=== PATIENT | male | born 1945 | race Caucasian/White ===

== ENCOUNTER 2018-05-18 20:47 | Inpatient (IN) ==
[2018-05-18 21:51] LABS: Baso # (Auto) 0.1 th/mm3 (0.0-0.2); Baso % (Auto) 3.3 % (0.0-2.0); Eos # (Auto) 0.1 th/mm3 (0.0-0.4); Eos % (Auto) 3.4 % (0.0-4.0); Hematocrit 27.8 % (39.0-51.0); Hemoglobin 9.1 gm/dL (13.0-17.0); Lymph # (Auto) 0.7 th/mm3 (1.0-4.8); Lymph % (Auto) 17.8 % (9.0-44.0); Mean Corpuscular HGB Conc 32.8 % (32.0-36.0); Mean Corpuscular Hemoglobin 31.5 pg (27.0-34.0); Mean Corpuscular Volume 96.2 fL (80.0-100.0); Mean Platelet Volume 7.5 fL (7.0-11.0); Mono # (Auto) 0.4 th/mm3 (0.0-0.9); Mono % (Auto) 9.8 % (0.0-8.0); Neut # (Auto) 2.7 th/mm3 (1.8-7.7); Neut % (Auto) 65.7 % (16.0-70.0); Platelet Count 314 th/mm3 (150-450); Red Blood Count 2.89 mil/mm3 (4.50-5.90); Red Cell Distribution Width 17.8 % (11.6-17.2); White Blood Count 4.2 th/mm3 (4.0-11.0)
--- NOTE | 2018-05-18 22:01 | XR ---
EXAM DATE: 05/18/2018 9:58 PM EST AGE/SEX: 73 years / Male INDICATIONS: Shortness of breath. CLINICAL DATA: This is the patient's initial encounter. Patient reports that signs and symptoms have been present for > 1 year and indicates a pain score of Nonresponsive. MEDICAL/SURGICAL HISTORY: Chronic obstructive pulmonary disease. . Atrial fibrillation. COMPARISON: [facility] [place] 1[place] SING[place] AP, [place]/04/2018. . FINDINGS: Slight cardiomegaly seen. Lungs are clear. CONCLUSION: No acute cardiopulmonary disease. Electronically signed by: Teresa Valadez MD Board Certified Radiologist 05/18/2018 10:00 PM EST
[2018-05-18 22:13] LABS: Alanine Aminotransferase 23 U/L (12-78); Albumin 3.3 g/dL (3.4-5.0); Anion Gap 11 meq/L (5-15); Aspartate Aminotransferase 24 U/L (15-37); Blood Urea Nitrogen 13 mg/dL (7-18); Calcium 8.7 mg/dL (8.5-10.1); Carbon Dioxide 24.7 meq/L (21.0-32.0); Chloride 107 meq/L (98-107); Glomerular Filtration Rate 82 mL/min (>89); Glucose,Random 90 mg/dL (74-106); Magnesium 1.6 mg/dL (1.5-2.5); Potassium 3.6 meq/L (3.5-5.1); Sodium 143 meq/L (136-145)
[2018-05-18 22:23] LABS: Alkaline Phosphatase 137 U/L (45-117); Total Protein 7.2 g/dL (6.4-8.2)
[2018-05-18 22:38] LABS: Alcohol 150 mg/dL (0-5)
--- NOTE | 2018-05-18 22:56 | CT ---
EXAM DATE: 05/18/2018 10:48 PM EST AGE/SEX: 73 years / Male INDICATIONS: Trauma. Head injury. CLINICAL DATA: This is the patient's initial encounter. Patient reports that signs and symptoms have been present for 1 day and indicates a pain score of 0/10. MEDICAL/SURGICAL HISTORY: Chronic obstructive pulmonary disease. Carcinoma, prostatic. A-fib. No ne. RADIATION DOSE: 40.15 CTDI (mGy) [place] [facility] [place]. . TECHNIQUE: CT of the head without contrast. Using automated exposure control and adjustment of the mA and/or kV according to patient size, radiation dose was kept as low as reasonably achievable to ob tain optimal diagnostic quality images. DICOM format image data is available electronically for revi ew and comparison. FINDINGS: Cerebrum: The ventricles are normal for age. There is a septum cavum pellucidum. No evidence of midl ine shift, mass lesion, hemorrhage or acute infarction. No extraaxial fluid collections are seen. Posterior Fossa: The cerebellum and brainstem are intact. The 4th ventricle is midline. The cerebe llopontine angle is unremarkable. Extracranial: The visualized portion of the orbits is intact. Skull: The calvaria is intact. No evidence of skull fracture. CONCLUSION: No acute intracranial abnormality. . . Electronically signed by: Zafar Ibarra MD Board Certified Radiologist 05/18/2018 10:55 PM EST
--- NOTE | 2018-05-18 23:01 | CT ---
EXAM DATE: 05/18/2018 10:54 PM EST AGE/SEX: 73 years / Male INDICATIONS: Trauma. CLINICAL DATA: This is the patient's initial encounter. Patient reports that signs and symptoms have been present for 1 day and indicates a pain score of 0/10. MEDICAL/SURGICAL HISTORY: Chronic obstructive pulmonary disease. Carcinoma, prostatic. A-fib. None. RADIATION DOSE: 19.59 CTDI (mGy) COMPARISON: No prior exams available for comparison. TECHNIQUE: Contiguous axial images were obtained using helical multirow detector technique. The vol umetric data was post-processed with multiplanar reconstruction in oblique axial, sagittal, and coron al planes. Using automated exposure control and adjustment of the mA and/or kV according to patient s ize, radiation dose was kept as low as reasonably achievable to obtain optimal diagnostic quality gloria ges. DICOM format image data is available electronically for review and comparison. FINDINGS: Vertebrae: Normal vertebral body height. Alignment: Normal. No subluxation. C2-3: The bony spinal canal is normal in size. No evidence of disc bulge or herniation. There is facet hypertrophy being worse on the left. There is mild narrowing of the left neural foramina. The r ight neural foramina is patent. C3-4: The bony spinal canal is normal in size. No evidence of disc bulge or herniation. There is fa cet hypertrophy being worse than the left. There is narrowing of the left neural foramina. The right neural foramina is patent. C4-5: The bony spinal canal is normal in size. No evidence of disc bulge or herniation. The neural foramina are bilaterally patent. There is facet hypertrophy. C5-6: The bony spinal canal is normal in size. No evidence of disc bulge or herniation. The neural foramina are bilaterally patent. There is facet hypertrophy. C6-7: The bony spinal canal is normal in size. No evidence of disc bulge or herniation. The neural foramina are bilaterally patent. C7-T1: The bony spinal canal is normal in size. No evidence of disc bulge or herniation. The neura l foramina are bilaterally patent. CONCLUSION: 1. No acute bony abnormality is seen. 2. Degenerative change. Electronically signed by: Zafar Ibarra MD Board Certified Radiologist 05/18/2018 11:00 PM EST
[2018-05-18 23:11] LABS: Bacteria,Urine Rare /hpf; Bilirubin,Urine Negative (Negative); Clarity,Urine Clear (Clear); Color,Urine Yellow (Yellw/Straw); Glucose,Urine (UA) Negative (Negative); Leukocyte Esterase,Urine Negative (Negative); Mucus,Urine Few /lpf (Occasional); Nitrite,Urine Negative (Negative); Specific Gravity,Urine 1.014 (1.002-1.035)
[2018-05-18 23:23] LABS: Amphetamine Screen,Urine Neg (Neg); Barbiturate Screen,Urine Neg (Neg); Cannabinoid Screen,Urine Neg (Neg); Cocaine Screen,Urine Neg (Neg)
[2018-05-18 23:37] LABS: Opiate Screen,Urine Neg (Neg)
[2018-05-18 23:56] LABS: INR 1.1 Ratio; Prothrombin Time 10.7 sec (9.8-11.6)
[2018-05-19] MEDS ORDERED: Metoprolol Inj 5 MG/5 ML Vial IV.PUSH ONE (00:18)
[2018-05-19] MEDS ORDERED: Acetaminophen 325 MG Tablet PO ONE (00:36)
--- NOTE | 2018-05-19 01:41 | ED ---
HPI General Chief complaint: Psychiatric Symptoms Stated complaint: BA/Dayan Time Seen by Provider: 05/18/18 21:39 Source: EMS Mode of arrival: EMS Limitations: no limitations History of Present Illness HPI narrative: 73-year-old male who is a chronic alcoholic was is drinking heavily earlier today. He called 911 and when police arrived patient mentioned that he had a handgun and wanted to kill himself. Patient was Green acted. Currently he is denying any such thoughts. He says that he had fallen earlier and had hit his head and his neck and they are hurting. Patient also has history of atrial fibrillation and is on Coumadin. His heart rate was elevated. Patient is otherwise oriented x3. Related Data Previous Rx's Medication Instructions Recorded diltiazem HCl 120 mg PO DAILY 30 Days #30 cap 05/08/18 ipratropium-albuterol 1 amp NEB Q4HR NEB PRN #30 ml 05/08/18 metoprolol tartrate 25 mg PO TID 30 Days #90 tab 05/08/18 nitrofurantoin macrocrystal 100 mg PO BID #14 cap 05/08/18 rivaroxaban [Xarelto] 15 mg PO DAILY #30 tab 05/08/18 Allergies Allergy/AdvReac Type Severity Reaction Status Date / Time No Known Allergies Allergy Verified 05/04/18 08:16 Review of Systems ROS: all other systems reviewed are negative [facility] Medical History Medical History Atrial fibrillation (Acute) COPD (chronic obstructive pulmonary disease) (Acute) Prostate CA (Acute) Surgical History Surgical History S/P TURP (Acute) Social History Social History Substance History: No History of Abuse Second Hand Smoke Exposure: No Smoking Status: Current every day smoker Tobacco Type: Cigarettes How Often Do You Have a Drink Containing Alcohol: 4 or more times a week Recent Travel in [facility] within the Last 8 Weeks: No Recent Out of Country Travel within the Last 8 Weeks: No Immunization History Tetanus Immunization: Unsure Exam Narrative Exam Narrative: GENERAL: Awake, alert, obese, no obvious distress SKIN: Focused skin assessment warm/dry. Multiple ecchymosis HEAD: Atraumatic. Normocephalic. EYES: Pupils equal and round. No scleral icterus. No injection or drainage. ENT: No nasal bleeding or discharge. Mucous membranes pink and moist. NECK: Trachea midline. No JVD. CARDIOVASCULAR: Irregularly irregular rhythm, tachycardia. No murmur appreciated. RESPIRATORY: No accessory muscle use. Clear to auscultation. Breath sounds equal bilaterally. GASTROINTESTINAL: Abdomen soft, non-tender, nondistended. Hepatic and splenic margins not palpable. MUSCULOSKELETAL: No obvious deformities. No clubbing. No cyanosis. No edema. Left olecranon bursitis NEUROLOGICAL: Awake and alert. No obvious cranial nerve deficits. Motor grossly within normal limits. Normal speech. PSYCHIATRIC: Appropriate mood and affect; insight and judgment normal. Course Initial Documented Vital Signs Temperature 98.0 F 05/18/18 21:06 Pulse Rate 140 H 05/18/18 21:06 Blood Pressure 132/77 05/18/18 21:06 Pulse Oximetry 93 L 05/18/18 21:06 Last Documented Vital Signs Temperature 97.6 F 05/23/18 20:00 Pulse Rate 79 05/23/18 20:50 Respiratory Rate 16 05/23/18 20:50 Blood Pressure 114/65 05/23/18 20:00 Pulse Oximetry 94 L 05/23/18 20:50 Critical Care Time Critical Care Time: Yes Total Critical Care Time: 45 Attestation: Aggregate critical care time was 45 minutes. Time to perform other separately billable procedures was not included in the critical care time. My time did not include minutes spent treating any other patients simultaneously or on activities that did not directly contribute to the patient's treatment. The services I provided to this patient were to treat and/or prevent clinically significant deterioration that could result in: A. fib with RVR, Cardizem bolus and drip I provided critical care services requiring my management, as noted below: Chart data review, documentation time, medication orders and management, vital sign assessments/reviewing monitor data, ordering and reviewing lab tests, ordering and interpreting/reviewing x-rays and diagnostic studies, care of the patient and discussion of the patient with the admitting physicians. Medical Decision Making MDM Narrative Medical decision making narrative: 1:38 AM patient was initially given 20 mg dose of Cardizem bolus and p.o. Cardizem. Heart rate continued to be in 120s- 130s. IV Lopressor 5 mg was given which brought the heart rate down to 90s but currently his heart rate is in 130s again. I have started a Cardizem drip. Based on this patient is not medically cleared. His blood test results are back and within acceptable limit. Patient will need to be admitted medically. He is on [facility] protocol. Medical Screen Exam Complete: Yes Emergency Medical Condition: Yes Lab Data Result diagrams: 05/20/18 04:37 05/22/18 13:29 Lab Results 05/18/18 05/18/18 05/18/18 Range/Units 21:10 21:10 21:10 WBC 4.2 (4.0-11.0) th/mm3 RBC 2.89 L (4.50-5.90) mil/mm3 Hgb 9.1 L (13.0-17.0) gm/dL Hct 27.8 L (39.0-51.0) % MCV 96.2 (80.0-100.0) fL MCH 31.5 (27.0-34.0) pg MCHC 32.8 (32.0-36.0) % RDW 17.8 H (11.6-17.2) % Plt Count 314 D (150-450) th/mm3 MPV 7.5 (7.0-11.0) fL Neut % (Auto) 65.7 (16.0-70.0) % Lymph % (Auto) 17.8 (9.0-44.0) % [place] % (Auto) 9.8 H (0.0-8.0) % Eos % (Auto) 3.4 (0.0-4.0) % Baso % (Auto) 3.3 H (0.0-2.0) % Neut # (Auto) 2.7 (1.8-7.7) th/mm3 Lymph # (Auto) 0.7 L (1.0-4.8) th/mm3 [place] # (Auto) 0.4 (0.0-0.9) th/mm3 Eos # (Auto) 0.1 (0.0-0.4) th/mm3 Baso # (Auto) 0.1 (0.0-0.2) th/mm3 WBC Differential . Differential Comment Auto diff final PT (9.8-11.6) sec INR Ratio Puncture Site Patient Temperature O2 Saturation (90-100) % ABG pH (7.380-7.420) ABG pCO2 (38-42) mmHg ABG pO2 (61-120) mmHG ABG HCO3 (22-26) mmol/L ABG O2 Content (12.0-20.0) Vol % ABG Base Excess (-2-2) mmol/L ABG Methemoglobin (0-2) % Josiah Test Hemoglobin (12.0-16.0) G/DL Carboxyhemoglobin (0-4) % O2 Delivery Device Liter Flow L/M Critical Value Sodium 143 (136-145) meq/L Potassium 3.6 (3.5-5.1) meq/L Chloride 107 (98-107) meq/L Carbon Dioxide 24.7 (21.0-32.0) meq/L Anion Gap 11 (5-15) meq/L BUN 13 (7-18) mg/dL Creatinine 0.91 (0.60-1.30) mg/dL Estimated GFR 82 L (>89) mL/min Random Glucose 90 (74-106) mg/dL Calcium 8.7 (8.5-10.1) mg/dL Magnesium 1.6 (1.5-2.5) mg/dL Total Bilirubin 0.3 (0.2-1.0) mg/dL AST 24 (15-37) U/L ALT 23 (12-78) U/L Alkaline Phosphatase 137 H (45-117) U/L Troponin I (0.02-0.05) ng/mL B-Natriuretic Peptide (0-100) pg/mL Total Protein 7.2 (6.4-8.2) g/dL Albumin 3.3 L (3.4-5.0) g/dL TSH 1.180 (0.358-3.740) uIU/mL Urine Color (Yellw/Straw) Urine Clarity (Clear) Urine pH (5.0-8.5) Ur Specific [place] (1.002-1.035) Urine Protein (Neg-Trace) mg/dL Urine Glucose (UA) (Negative) mg/dL Urine Ketones (Negative) mg/dL Urine Occult Blood (Negative) Urine Nitrate (Negative) Urine Bilirubin (Negative) Urine Urobilinogen (Less than 2) mg/dL Ur Leukocyte Esterase (Negative) Urine RBC (0-3) /hpf Urine WBC (0-5) /hpf Urine Bacteria (None) /hpf Urine Mucus (Occasional) /lpf Micro UA Comment Ur Microscopic Review Urine Culture Comments Salicylates 2.2 L (2.8-20.0) mg/dL Urine Opiates Screen (Neg) Acetaminophen Less than 2.0 L (10.0-30.0) mcg/mL Ur Barbiturates Screen (Neg) Ur Amphetamines Screen (Neg) U Benzodiazepines Scrn (Neg) Urine Cocaine Screen (Neg) U Cannabinoids Screen (Neg) Serum Alcohol 150 H (0-5) mg/dL 05/18/18 05/18/18 05/18/18 Range/Units 22:26 22:26 22:34 WBC (4.0-11.0) th/mm3 RBC (4.50-5.90) mil/mm3 Hgb (13.0-17.0) gm/dL Hct (39.0-51.0) % MCV (80.0-100.0) fL MCH (27.0-34.0) pg MCHC (32.0-36.0) % RDW (11.6-17.2) % Plt Count (150-450) th/mm3 MPV (7.0-11.0) fL Neut % (Auto) (16.0-70.0) % Lymph % (Auto) (9.0-44.0) % [place] % (Auto) (0.0-8.0) % Eos % (Auto) (0.0-4.0) % Baso % (Auto) (0.0-2.0) % Neut # (Auto) (1.8-7.7) th/mm3 Lymph # (Auto) (1.0-4.8) th/mm3 [place] # (Auto) (0.0-0.9) th/mm3 Eos # (Auto) (0.0-0.4) th/mm3 Baso # (Auto) (0.0-0.2) th/mm3 WBC Differential Differential Comment PT (9.8-11.6) sec INR Ratio Puncture Site Patient Temperature O2 Saturation (90-100) % ABG pH (7.380-7.420) ABG pCO2 (38-42) mmHg ABG pO2 (61-120) mmHG ABG HCO3 (22-26) mmol/L ABG O2 Content (12.0-20.0) Vol % ABG Base Excess (-2-2) mmol/L ABG Methemoglobin (0-2) % Josiah Test Hemoglobin (12.0-16.0) G/DL Carboxyhemoglobin (0-4) % O2 Delivery Device Liter Flow L/M Critical Value Sodium (136-145) meq/L Potassium (3.5-5.1) meq/L Chloride (98-107) meq/L Carbon Dioxide (21.0-32.0) meq/L Anion Gap (5-15) meq/L BUN (7-18) mg/dL Creatinine (0.60-1.30) mg/dL Estimated GFR (>89) mL/min Random Glucose (74-106) mg/dL Calcium (8.5-10.1) mg/dL Magnesium (1.5-2.5) mg/dL Total Bilirubin (0.2-1.0) mg/dL AST (15-37) U/L ALT (12-78) U/L Alkaline Phosphatase (45-117) U/L Troponin I Less than 0.02 L (0.02-0.05) ng/mL B-Natriuretic Peptide (0-100) pg/mL Total Protein (6.4-8.2) g/dL Albumin (3.4-5.0) g/dL TSH (0.358-3.740) uIU/mL Urine Color Yellow (Yellw/Straw) Urine Clarity Clear (Clear) Urine pH 5.0 (5.0-8.5) Ur Specific [place] 1.014 (1.002-1.035) Urine Protein Negative (Neg-Trace) mg/dL Urine Glucose (UA) Negative (Negative) mg/dL Urine Ketones Negative (Negative) mg/dL Urine Occult Blood Negative (Negative) Urine Nitrate Negative (Negative) Urine Bilirubin Negative (Negative) Urine Urobilinogen Less than 2 (Less than 2) mg/dL Ur Leukocyte Esterase Negative (Negative) Urine RBC 2 (0-3) /hpf Urine WBC 7 H (0-5) /hpf Urine Bacteria Rare H (None) /hpf Urine Mucus Few H (Occasional) /lpf Micro UA Comment Cath-culture ind Ur Microscopic Review Not Reportable Urine Culture Comments Cath-cult indicated Salicylates (2.8-20.0) mg/dL Urine Opiates Screen Neg (Neg) Acetaminophen (10.0-30.0) mcg/mL Ur Barbiturates Screen Neg (Neg) Ur Amphetamines Screen Neg (Neg) U Benzodiazepines Scrn Pos H (Neg) Urine Cocaine Screen Neg (Neg) U Cannabinoids Screen Neg (Neg) Serum Alcohol (0-5) mg/dL 05/18/18 05/18/18 05/20/18 Range/Units 22:34 23:28 04:37 WBC 4.5 (4.0-11.0) th/mm3 RBC 2.93 L (4.50-5.90) mil/mm3 Hgb 9.2 L (13.0-17.0) gm/dL Hct 28.3 L (39.0-51.0) % MCV 96.5 (80.0-100.0) fL MCH 31.4 (27.0-34.0) pg MCHC 32.5 (32.0-36.0) % RDW 17.9 H (11.6-17.2) % Plt Count 238 (150-450) th/mm3 MPV 7.2 (7.0-11.0) fL Neut % (Auto) 74.1 H (16.0-70.0) % Lymph % (Auto) 12.6 (9.0-44.0) % [place] % (Auto) 8.3 H (0.0-8.0) % Eos % (Auto) 4.0 (0.0-4.0) % Baso % (Auto) 1.0 (0.0-2.0) % Neut # (Auto) 3.3 (1.8-7.7) th/mm3 Lymph # (Auto) 0.6 L (1.0-4.8) th/mm3 [place] # (Auto) 0.4 (0.0-0.9) th/mm3 Eos # (Auto) 0.2 (0.0-0.4) th/mm3 Baso # (Auto) 0.0 (0.0-0.2) th/mm3 WBC Differential . Differential Comment Auto diff final PT 10.7 (9.8-11.6) sec INR 1.1 Ratio Puncture Site Patient Temperature O2 Saturation (90-100) % ABG pH (7.380-7.420) ABG pCO2 (38-42) mmHg ABG pO2 (61-120) mmHG ABG HCO3 (22-26) mmol/L ABG O2 Content (12.0-20.0) Vol % ABG Base Excess (-2-2) mmol/L ABG Methemoglobin (0-2) % Josiah Test Hemoglobin (12.0-16.0) G/DL Carboxyhemoglobin (0-4) % O2 Delivery Device Liter Flow L/M Critical Value Sodium (136-145) meq/L Potassium (3.5-5.1) meq/L Chloride (98-107) meq/L Carbon Dioxide (21.0-32.0) meq/L Anion Gap (5-15) meq/L BUN (7-18) mg/dL Creatinine (0.60-1.30) mg/dL Estimated GFR (>89) mL/min Random Glucose (74-106) mg/dL Calcium (8.5-10.1) mg/dL Magnesium (1.5-2.5) mg/dL Total Bilirubin (0.2-1.0) mg/dL AST (15-37) U/L ALT (12-78) U/L Alkaline Phosphatase (45-117) U/L Troponin I (0.02-0.05) ng/mL B-Natriuretic Peptide 128 H (0-100) pg/mL Total Protein (6.4-8.2) g/dL Albumin (3.4-5.0) g/dL TSH (0.358-3.740) uIU/mL Urine Color (Yellw/Straw) Urine Clarity (Clear) Urine pH (5.0-8.5) Ur Specific [place] (1.002-1.035) Urine Protein (Neg-Trace) mg/dL Urine Glucose (UA) (Negative) mg/dL Urine Ketones (Negative) mg/dL Urine Occult Blood (Negative) Urine Nitrate (Negative) Urine Bilirubin (Negative) Urine Urobilinogen (Less than 2) mg/dL Ur Leukocyte Esterase (Negative) Urine RBC (0-3) /hpf Urine WBC (0-5) /hpf Urine Bacteria (None) /hpf Urine Mucus (Occasional) /lpf Micro UA Comment Ur Microscopic Review Urine Culture Comments Salicylates (2.8-20.0) mg/dL Urine Opiates Screen (Neg) Acetaminophen (10.0-30.0) mcg/mL Ur Barbiturates Screen (Neg) Ur Amphetamines Screen (Neg) U Benzodiazepines Scrn (Neg) Urine Cocaine Screen (Neg) U Cannabinoids Screen (Neg) Serum Alcohol (0-5) mg/dL 05/20/18 05/20/18 05/21/18 Range/Units 04:37 04:37 08:35 WBC (4.0-11.0) th/mm3 RBC (4.50-5.90) mil/mm3 Hgb (13.0-17.0) gm/dL Hct (39.0-51.0) % MCV (80.0-100.0) fL MCH (27.0-34.0) pg MCHC (32.0-36.0) % RDW (11.6-17.2) % Plt Count (150-450) th/mm3 MPV (7.0-11.0) fL Neut % (Auto) (16.0-70.0) % Lymph % (Auto) (9.0-44.0) % [place] % (Auto) (0.0-8.0) % Eos % (Auto) (0.0-4.0) % Baso % (Auto) (0.0-2.0) % Neut # (Auto) (1.8-7.7) th/mm3 Lymph # (Auto) (1.0-4.8) th/mm3 [place] # (Auto) (0.0-0.9) th/mm3 Eos # (Auto) (0.0-0.4) th/mm3 Baso # (Auto) (0.0-0.2) th/mm3 WBC Differential Differential Comment PT (9.8-11.6) sec INR Ratio Puncture Site Patient Temperature O2 Saturation (90-100) % ABG pH (7.380-7.420) ABG pCO2 (38-42) mmHg ABG pO2 (61-120) mmHG ABG HCO3 (22-26) mmol/L ABG O2 Content (12.0-20.0) Vol % ABG Base Excess (-2-2) mmol/L ABG Methemoglobin (0-2) % Josiah Test Hemoglobin (12.0-16.0) G/DL Carboxyhemoglobin (0-4) % O2 Delivery Device Liter Flow L/M Critical Value Sodium 141 141 (136-145) meq/L Potassium 3.1 L 3.7 (3.5-5.1) meq/L Chloride 102 101 (98-107) meq/L Carbon Dioxide 32.1 H 36.2 H (21.0-32.0) meq/L Anion Gap 7 4 L (5-15) meq/L BUN 10 8 (7-18) mg/dL Creatinine 0.93 0.85 (0.60-1.30) mg/dL Estimated GFR 80 L 89 (>89) mL/min Random Glucose 118 H 107 H (74-106) mg/dL Calcium 8.3 L 8.5 (8.5-10.1) mg/dL Magnesium 1.3 L (1.5-2.5) mg/dL Total Bilirubin 0.4 (0.2-1.0) mg/dL AST 14 L (15-37) U/L ALT 18 (12-78) U/L Alkaline Phosphatase 121 H (45-117) U/L Troponin I (0.02-0.05) ng/mL B-Natriuretic Peptide (0-100) pg/mL Total Protein 6.9 (6.4-8.2) g/dL Albumin 3.1 L (3.4-5.0) g/dL TSH (0.358-3.740) uIU/mL Urine Color (Yellw/Straw) Urine Clarity (Clear) Urine pH (5.0-8.5) Ur Specific [place] (1.002-1.035) Urine Protein (Neg-Trace) mg/dL Urine Glucose (UA) (Negative) mg/dL Urine Ketones (Negative) mg/dL Urine Occult Blood (Negative) Urine Nitrate (Negative) Urine Bilirubin (Negative) Urine Urobilinogen (Less than 2) mg/dL Ur Leukocyte Esterase (Negative) Urine RBC (0-3) /hpf Urine WBC (0-5) /hpf Urine Bacteria (None) /hpf Urine Mucus (Occasional) /lpf Micro UA Comment Ur Microscopic Review Urine Culture Comments Salicylates (2.8-20.0) mg/dL Urine Opiates Screen (Neg) Acetaminophen (10.0-30.0) mcg/mL Ur Barbiturates Screen (Neg) Ur Amphetamines Screen (Neg) U Benzodiazepines Scrn (Neg) Urine Cocaine Screen (Neg) U Cannabinoids Screen (Neg) Serum Alcohol (0-5) mg/dL 05/22/18 05/22/18 05/22/18 Range/Units 13:29 13:29 15:00 WBC (4.0-11.0) th/mm3 RBC (4.50-5.90) mil/mm3 Hgb (13.0-17.0) gm/dL Hct (39.0-51.0) % MCV (80.0-100.0) fL MCH (27.0-34.0) pg MCHC (32.0-36.0) % RDW (11.6-17.2) % Plt Count (150-450) th/mm3 MPV (7.0-11.0) fL Neut % (Auto) (16.0-70.0) % Lymph % (Auto) (9.0-44.0) % [place] % (Auto) (0.0-8.0) % Eos % (Auto) (0.0-4.0) % Baso % (Auto) (0.0-2.0) % Neut # (Auto) (1.8-7.7) th/mm3 Lymph # (Auto) (1.0-4.8) th/mm3 [place] # (Auto) (0.0-0.9) th/mm3 Eos # (Auto) (0.0-0.4) th/mm3 Baso # (Auto) (0.0-0.2) th/mm3 WBC Differential Differential Comment PT (9.8-11.6) sec INR Ratio Puncture Site Right radial Patient Temperature 98.6 O2 Saturation 94 (90-100) % ABG pH 7.39 (7.380-7.420) ABG pCO2 57 H* (38-42) mmHg ABG pO2 92 (61-120) mmHG ABG HCO3 34 H (22-26) mmol/L ABG O2 Content 12.6 (12.0-20.0) Vol % ABG Base Excess 8.4 H (-2-2) mmol/L ABG Methemoglobin 1.3 (0-2) % Josiah Test Present Hemoglobin 9.4 L (12.0-16.0) G/DL Carboxyhemoglobin 1.6 (0-4) % O2 Delivery Device Nasal cannula Liter Flow 4.00 L/M Critical Value Yes Sodium 140 (136-145) meq/L Potassium 3.8 (3.5-5.1) meq/L Chloride 100 (98-107) meq/L Carbon Dioxide 33.4 H (21.0-32.0) meq/L Anion Gap 7 (5-15) meq/L BUN 11 (7-18) mg/dL Creatinine 0.94 (0.60-1.30) mg/dL Estimated GFR 79 L (>89) mL/min Random Glucose 128 H (74-106) mg/dL Calcium 8.8 (8.5-10.1) mg/dL Magnesium 1.7 (1.5-2.5) mg/dL Total Bilirubin (0.2-1.0) mg/dL AST (15-37) U/L ALT (12-78) U/L Alkaline Phosphatase (45-117) U/L Troponin I (0.02-0.05) ng/mL B-Natriuretic Peptide (0-100) pg/mL Total Protein (6.4-8.2) g/dL Albumin (3.4-5.0) g/dL TSH (0.358-3.740) uIU/mL Urine Color (Yellw/Straw) Urine Clarity (Clear) Urine pH (5.0-8.5) Ur Specific [place] (1.002-1.035) Urine Protein (Neg-Trace) mg/dL Urine Glucose (UA) (Negative) mg/dL Urine Ketones (Negative) mg/dL Urine Occult Blood (Negative) Urine Nitrate (Negative) Urine Bilirubin (Negative) Urine Urobilinogen (Less than 2) mg/dL Ur Leukocyte Esterase (Negative) Urine RBC (0-3) /hpf Urine WBC (0-5) /hpf Urine Bacteria (None) /hpf Urine Mucus (Occasional) /lpf Micro UA Comment Ur Microscopic Review Urine Culture Comments Salicylates (2.8-20.0) mg/dL Urine Opiates Screen (Neg) Acetaminophen (10.0-30.0) mcg/mL Ur Barbiturates Screen (Neg) Ur Amphetamines Screen (Neg) U Benzodiazepines Scrn (Neg) Urine Cocaine Screen (Neg) U Cannabinoids Screen (Neg) Serum Alcohol (0-5) mg/dL Imaging Data Radiologist's impression: Chest X-Ray 05/18/18 21:39 CONCLUSION: No acute cardiopulmonary disease. Cervical Spine CT 05/18/18 22:08 CONCLUSION: 1. No acute bony abnormality is seen. 2. Degenerative change. Head CT 05/18/18 22:08 CONCLUSION: No acute intracranial abnormality. . . Chest X-Ray 05/19/18 20:54 CONCLUSION: Cardiomegaly with minimal basilar atelectasis. Chest X-Ray 05/21/18 00:00 CONCLUSION: The lungs are clear. ECG Data Attestation: I personally reviewed and interpreted this ECG as follows: Interpretation: Twelve-lead EKG was reviewed by meAshish A. fib, normal axis, low voltage, RVR. Heart rate of 129 bpm. Discharge Plan Discharge Disposition Patient Disposition: ED Admit(ED Internal Use Only) Discharge Order Discharge Orders: ED Use Only Admit Order (Routine); Ordered 05/19/18 Ordered By: Juan Murray Physicians Team ED Provider: Juan Murray Primary Care Provider: UNKNOWN, Attending Provider: Dionne Hood Other Providers: Ayden Desir ; Travis Robles ; Americo Vidal ; Stewart Mahan ; Cabrera Her P Status ED Status: Left Department Discharge Information Discharge Date/Time: 05/19/18 03:37
[2018-05-19] MEDS ORDERED: Acetaminophen 325 MG Tablet PO PRN (01:56)
[2018-05-19] MEDS ORDERED: Bisacodyl 10 MG Supp RECTAL PRN (01:56)
[2018-05-19] MEDS ORDERED: Ibuprofen 600 MG Tablet PO ONE (02:00)
[2018-05-19] MEDS: Sod Chloride 0.9% Inj 1,000 ML IV.CONT SCH (02:08)
[2018-05-19] MEDS: dilTIAZem Inj 125 MG in Sodium Chlor 0.9% Inj 100 ML IV.CONT PRN ×2 (02:29→12:09)
--- NOTE | 2018-05-19 02:52 | P.HPIM ---
History of Present Illness Primary Care Physician: UNKNOWN History of Present Illness: This is a 73-year-old male with PMH of HTN, A. fib on Xarelto and Alcohol Abuse was brought to the ER by EMS under Green Act after calling Police and threatening to shoot himself w/ his gun. On arrival, noted to be in A-fib w/ RVR, HR 140's, states he is on Xarelto and compliant, cannot recall names of other medications. S/p Cardizem IV x1 in ER w/ transient improvement, however had episode of recurrent A-fib w/ RVR, currently on Cardizem gtt. BP 123/81, HR 135, O2 sat 95% on RA, Afebrile. CBC at baseline. INR 1.1. Chemistry unremarkable. Troponin negative. UA positive for UTI. UDS +Benzo. CXR w/ no acute findings. CT Head w/ no acute findings, CT C- Spine negative. Diagnosis (1) Atrial fibrillation with RVR: (2) Suicidal ideation: (3) Alcohol abuse: (4) UTI (urinary tract infection): Inpatient Certification Inpatient Certification: I certify that the inpatient services were ordered in accordance with Medicare regulations governing the order. This includes certification that hospital inpatient services are reasonable and necessary and in the case of services not specified as inpatient-only under 42 CFR 419.22(n), that they are appropriately provided as inpatient services in accordance to with the 2-midnight benchmark under 43 CFR 412.3(e) Estimated Total Length of Stay (Days): 2 Plans for Post Hospital Care: Not yet determined Review of Systems PAST FAMILY HISTORY: Reviewed. No h/o DM or CAD Review of Systems: all other systems reviewed are negative [facility] Medical History Medical History Atrial fibrillation (Acute) COPD (chronic obstructive pulmonary disease) (Acute) Prostate CA (Acute) Surgical History Surgical History S/P TURP (Acute) Social History Social History Substance History: No History of Abuse Second Hand Smoke Exposure: Yes Smoking Status: Current every day smoker Tobacco Type: Cigarettes How Often Do You Have a Drink Containing Alcohol: 4 or more times a week Recent Travel in [facility] within the Last 8 Weeks: No Recent Out of Country Travel within the Last 8 Weeks: No Immunization History Tetanus Immunization: Unsure Medications and Allergies Allergies Allergy/AdvReac Type Severity Reaction Status Date / Time No Known Allergies Allergy Verified 05/04/18 08:16 Active Medications: Active Medications Acetaminophen (Tylenol) 650 mg PO Q4H PRN PRN Reason: Temp > 100.4 Al Hydroxide/Mg Hydroxide (Milk Of Magnesia Liq) 30 ml PO Q12H PRN PRN Reason: Mild Constipation Bisacodyl (Dulcolax Supp) 10 mg RECTAL DAILY PRN PRN Reason: SEVERE CONSITIPATION Flumazenil (Romazicon Inj) 0.2 mg IV.PUSH Q1M PRN PRN Reason: OVERSEDATION Folic Acid (Folic Acid) 1 mg PO DAILY [facility] Stop: 05/24/18 08:59 Haloperidol Lactate (Haldol Inj) 1 mg IV.PUSH Q15M PRN PRN Reason: for severe agitation Diltiazem HCl 125 mg/ Sodium (Chloride) 125 mls @ 5 mls/hr IV.CONT TITRATE PRN ; Protocol PRN Reason: Per Protocol Last Admin: 05/19/18 02:29 Dose: 5 mg/hr, 5 mls/hr Sodium Chloride (Ns Inj) 1,000 mls @ 100 mls/hr IV.CONT .Q10H [facility] Last Admin: 05/19/18 02:08 Dose: 100 mls/hr Ceftriaxone Sodium 1,000 mg/ (Sodium Chloride) 100 mls @ 200 mls/hr IV.SIG Q24H [facility] Lactulose (Lactulose Liq) 30 ml PO DAILY PRN PRN Reason: SEVERE CONSITIPATION Lorazepam (Ativan Inj) 1 mg IV.PUSH Q4H PRN PRN Reason: for CIWA 8-10 Lorazepam (Ativan Inj) 2 mg IV.PUSH Q15M PRN PRN Reason: for CIWA > 20 Lorazepam (Ativan Inj) 2 mg IV.PUSH Q1H PRN PRN Reason: for CIWA 15-20 Lorazepam (Ativan) 1 mg PO Q4H PRN PRN Reason: for CIWA 8-10 Lorazepam (Ativan) 2 mg PO Q2H PRN PRN Reason: for CIWA 11-14 Lorazepam (Ativan Inj) 2 mg IV.PUSH Q2H PRN PRN Reason: for 02-14 Metoprolol Tartrate (Lopressor) 25 mg PO TID [facility] Multivitamins/Minerals (Theragran-M) 1 tab PO DAILY [facility] Stop: 05/24/18 08:59 Ondansetron HCl (Zofran Inj) 4 mg IV.PUSH Q6H PRN PRN Reason: NAUSEA OR VOMITING Rivaroxaban (Xarelto) 15 mg PO DAILY [facility] Ropinirole HCl (Requip) 0.25 mg PO HS [facility] Senna/Docusate Sodium (Joseline-Colace) 1 tab PO BID [facility] Sennosides (Senokot) 17.2 mg PO Q12H PRN PRN Reason: Moderate Constipation Sodium Chloride (Ns Flush) 2 ml IV.FLUSH PRN PRN PRN Reason: FLUSH AFTER USING IV ACCESS Sodium Chloride (Ns Flush) 2 ml IV.FLUSH BID [facility] Thiamine HCl (Vitamin B1) 100 mg PO DAILY [facility] Physical Exam Vital signs: Vital Signs 05/18/18 21:06 05/18/18 21:29 05/18/18 23:31 Temperature 98.0 F Pulse Rate 140 H 140 H 135 H Respiratory Rate 22 Blood Pressure 132/77 123/81 Pulse Oximetry 93 L 95 05/19/18 00:31 05/19/18 01:53 05/19/18 02:18 Temperature Pulse Rate 98 H 91 H 98 H Respiratory Rate 20 18 20 Blood Pressure 141/72 H 123/81 129/90 Pulse Oximetry 96 95 95 Intake & Output 05/18/18 05/18/18 05/19/18 06:59 18:59 06:59 Intake Total 480 / 480 Balance 480 / 480 Weight 96.162 kg Intake: Oral 480 / 480 Narrative: PE: GENERAL: Middle-aged white male in no acute distress, mildly tremulous. SKIN: Focused skin assessment warm and dry. HEENT: PERRLA, EOMI. No scleral icterus or conjunctival pallor. No lid lag or facial droop. CARDIOVASCULAR: Irregularly irregular, in A-fib, HR 110's. No obvious murmurs to auscultation. No chest tenderness to palpation. RESPIRATORY: No obvious rhonchi or wheezing. Clear to auscultation. Breath sounds equal bilaterally. GASTROINTESTINAL: Abdomen soft, non-tender, nondistended. BS normal. MUSCULOSKELETAL: Extremities without clubbing, cyanosis, or edema. No obvious deformities. Involuntary jerking LLE due to RLS NEUROLOGICAL: Awake, alert and oriented x4. No focal neurologic deficits. Moving both upper and lower extremities spontaneously. PSYCHIATRIC: Appropriate mood and affect. Insight and judgment normal. Urinary Catheter Management Indwelling Urethral Catheter: Cath placed during this visit: yes Reason for continuing: Acute urinary retention Insertion date: 05/18/18 Insertion time: 22:35 Results Labs CBC & Chem 7: 05/18/18 21:10 05/18/18 21:10 Imaging Impressions Chest X-Ray 05/18/18 21:39 CONCLUSION: No acute cardiopulmonary disease. Cervical Spine CT 05/18/18 22:08 CONCLUSION: 1. No acute bony abnormality is seen. 2. Degenerative change. Head CT 05/18/18 22:08 CONCLUSION: No acute intracranial abnormality. . . Caprini VTE Risk Assessment Caprini VTE Risk Assessment: No/Low Risk (score <= 1) Caprini Risk Assessment Model: Point Value = 1 Point Value = 2 Point Value = 3 Point Value = 5 Age 41-60 Minor surgery BMI > 25 kg/m2 Swollen legs Varicose veins or History of unexplained or recurrent spontaneous Oral contraceptives or hormone replacement Sepsis (< 1 month) Serious lung disease, including pneumonia (< 1 month) Abnormal pulmonary function Acute myocardial infarction Congestive heart failure (< 1 month) History of inflammatory bowel disease Medical patient at bed rest Age 61-74 Arthroscopic surgery Major open surgery (> 45 min) Laparoscopic surgery (> 45 min) Malignancy Confined to bed (> 72 hours) Immobilizing plaster cast Central venous access Age >= 75 History of VTE Family history of VTE Factor V Leiden Prothrombin [id number] Lupus anticoagulant Anticardiolipin antibodies Elevated serum homocysteine Heparin-induced thrombocytopenia Other congenital or acquired thrombophilia Stroke (< 1 month) Elective arthroplasty Hip, pelvis, or leg fracture Acute spinal cord injury (< 1 month) Prophylaxis Regimen: Total Risk Factor Score Risk Level Prophylaxis Regimen 0-1 Low Early ambulation 2 Moderate Order ONE of the following: *Sequential Compression Device (SCD) *Heparin 5000 units SQ BID 3-4 Higher Order ONE of the following medications: *Heparin 5000 units SQ TID *Enoxaparin/Lovenox 40 mg SQ daily (WT < 150 kg, CrCl > 30 mL/min) *Enoxaparin/Lovenox 30 mg SQ daily (WT < 150 kg, CrCl > 10-29 mL/min) *Enoxaparin/Lovenox 30 mg SQ BID (WT < 150 kg, CrCl > 30 mL/min) AND/OR *Sequential Compression Device (SCD) 5 or more Highest Order ONE of the following medications: *Heparin 5000 units SQ TID (Preferred with Epidurals) *Enoxaparin/Lovenox 40 mg SQ daily (WT < 150 kg, CrCl > 30 mL/min) *Enoxaparin/Lovenox 30 mg SQ daily (WT < 150 kg, CrCl > 10-29 mL/min) *Enoxaparin/Lovenox 30 mg SQ BID (WT < 150 kg, CrCl > 30 mL/min) AND *Sequential Compression Device (SCD) Assessment and Plan (1) Atrial fibrillation with RVR: Code(s): I48.91 - Unspecified atrial fibrillation Status: Acute (2) Suicidal ideation: Code(s): R45.851 - Suicidal ideations Status: Acute (3) Alcohol abuse: Code(s): F10.10 - Alcohol abuse, uncomplicated Status: Acute (4) UTI (urinary tract infection): Code(s): N39.0 - Urinary tract infection, site not specified Status: Acute Plan A/P: 1. Afib w/ RVR: h/o A-fib, on Cardizem, Metoprolol and Xarelto per med list, however pt only recalls taking Xarelto, RVR likely secondary to med non- compliance compounded by alcohol abuse. Currently on Cardizem gtt, admit to [facility] , telemetry, continue Cardizem gtt, Consult Cardiology as needed. 2. Alcohol Abuse: Chronic, heavy, CIWA, Seizure Precautions, MVT/Thiamine/ Folate replacement. 3. Suicidal Ideation: called Police threatening to kill himself w/ his gun, currently under Green Act, denies suicidal ideation at this time. Sitter. Consult Psych. 4. UTI: U/a w/ UTI, Rocephin IV, IVF for hydration, monitor I/O. 5. DVT Prophylaxis: Xarelto 6. Social work for d/c planning as needed. 7. Case discussed w/ ER physician at length, labs/records/imaging reviewed by me
[2018-05-19] MEDS: Rivaroxaban 15 MG Tablet PO SCH (08:42)
[2018-05-19] MEDS: Metoprolol Tartrate 25 MG Tablet PO SCH ×3 (08:43→18:19)
[2018-05-19] MEDS: Senna/Docusate Sodium 8.6/50 MG Tablet PO SCH ×2 (08:43→19:59)
[2018-05-19] MEDS: Multivitamin/Minerals Therapeutic Tablet PO SCH (08:43)
[2018-05-19] MEDS: Folic Acid 1 MG Tablet PO SCH (08:43)
[2018-05-19] MEDS ORDERED: Digoxin Inj 500 MCG/2 ML Ampul IV.PUSH ONE (09:30)
--- NOTE | 2018-05-19 09:37 | ECG ---
Date Performed: 05/18/2018 Time Performed: 21:27:43 PTAGE: 73 years EKG: ATRIAL FIBRILLATION WITH RAPID VENTRICULAR RESPONSE POSSIBLE RIGHT VENTRICULAR CONDUCTION D ELAY ABNORMAL RHYTHM ECG No significant change from prior electrocardiogram. PREVIOUS TRACING : 05/04/2018 08.34 DOCTOR: Lorenzo Griffith Interpretating Date/Time 05/19/2018 09:36:24
[2018-05-19] MEDS: LORazepam 1 MG Tablet PO PRN ×2 (14:53→19:57)
--- NOTE | 2018-05-19 16:00 | P.CONPSY ---
Provisional Diagnosis Admission Date: May 19, 2018 01:56 History of Present Illness Service: psychiatry Consult date: 05/19/18 Reason for Consult: SI Primary Care Provider: UNKNOWN Chief Complaint: SI History of Present Illness: This is a request for a psychiatric consult. Documentation was reviewed, case was discussed with nursing and patient was evaluated. Patient is a 73-year-old male with a history of mood disorder and severe alcohol use. Patient was discharged from the psychiatric unit 10 days ago on May 09. Patient was admitted to the medical unit and was also found to have a Green act from a police manager to whom he expressed "I am not worth $0.17." Per Green act, patient said he was hopeless and did not feel like living anymore. He was noted to have access to guns at home. However, patient says the guns are not in his house and were taken by the police. Patient is pleasant but is evasive, guarded, denies having suicidal ideation before this admission or last week. He minimizes his alcohol use giving varying amounts during the interview. His CIWA is four today. Past psych: Patient denies outpatient history. Initially denied inpatient history before brought up his admission last week. Denies any history of psychotropic medications. Denies history of suicide attempts Past medical: See chart Past Famhx: Denies Past Social: Patient is retired. He has 2 daughters and lives by himself. Says he started drinking in his 40s but then denies a history of any detoxes or AA. Denies any other substance use Review of Systems All other systems reviewed negative except as stated in HPI PMFSH - History History Provided By: Patient - Medical History Medical History: Medical History (Last Reviewed 05/19/18 @ 01:37 by Juan Murray MD) Atrial fibrillation COPD (chronic obstructive pulmonary disease) Prostate CA - Surgical History Surgical History: Surgical History (Last Reviewed 05/19/18 @ 01:37 by Juan Murray MD) S/P TURP - Tobacco History Second Hand Smoke Exposure: No Tobacco Use In Past 30 Days: Yes Smoking Status: Current every day smoker Tobacco Type: Cigarettes - Alcohol History How Often Do You Have a Drink Containing Alcohol: 4 or more times a week - Substance Use History Substance History: No History of Abuse - Substance Use Type Alcohol Status: Active Route Used: By Mouth Reason for Use: Calm Down, Feels Good - Travel History Recent Travel in the [place] Within the Last 8 Weeks: No Recent Travel Out of the Country Within the Last 8 Weeks: No - Immunization History Tetanus Immunization: Unsure Medications and Allergies Active Medications: Active Medications Acetaminophen (Tylenol) 650 mg PO Q4H PRN PRN Reason: Temp > 100.4 Al Hydroxide/Mg Hydroxide (Milk Of Magnesia Liq) 30 ml PO Q12H PRN PRN Reason: Mild Constipation Bisacodyl (Dulcolax Supp) 10 mg RECTAL DAILY PRN PRN Reason: SEVERE CONSITIPATION Flumazenil (Romazicon Inj) 0.2 mg IV.PUSH Q1M PRN PRN Reason: OVERSEDATION Folic Acid (Folic Acid) 1 mg PO DAILY [facility] Stop: 05/24/18 08:59 Last Admin: 05/19/18 08:43 Dose: 1 mg Haloperidol Lactate (Haldol Inj) 1 mg IV.PUSH Q15M PRN PRN Reason: for severe agitation Diltiazem HCl 125 mg/ Sodium (Chloride) 125 mls @ 5 mls/hr IV.CONT TITRATE PRN ; Protocol PRN Reason: Per Protocol Last Admin: 05/19/18 12:09 Dose: 10 mg/hr, 10 mls/hr Sodium Chloride (Ns Inj) 1,000 mls @ 100 mls/hr IV.CONT .Q10H [facility] Last Admin: 05/19/18 02:08 Dose: 100 mls/hr Ceftriaxone Sodium 1,000 mg/ (Sodium Chloride) 100 mls @ 200 mls/hr IV.SIG Q24H [facility] Ipratropium [place] (Atrovent Neb) 0.5 mg NEB Q4HR NEB PRN PRN Reason: sob Last Admin: 05/19/18 14:50 Dose: 0.5 mg Lactulose (Lactulose Liq) 30 ml PO DAILY PRN PRN Reason: SEVERE CONSITIPATION Lorazepam (Ativan Inj) 1 mg IV.PUSH Q4H PRN PRN Reason: for CIWA 8-10 Lorazepam (Ativan Inj) 2 mg IV.PUSH Q15M PRN PRN Reason: for CIWA > 20 Lorazepam (Ativan Inj) 2 mg IV.PUSH Q1H PRN PRN Reason: for CIWA 15-20 Last Admin: 05/19/18 06:51 Dose: 2 mg Lorazepam (Ativan) 1 mg PO Q4H PRN PRN Reason: for CIWA 8-10 Last Admin: 05/19/18 14:53 Dose: 1 mg Lorazepam (Ativan) 2 mg PO Q2H PRN PRN Reason: for CIWA 11-14 Last Admin: 05/19/18 03:45 Dose: 2 mg Lorazepam (Ativan Inj) 2 mg IV.PUSH Q2H PRN PRN Reason: for CIWA 11-14 Metoprolol Tartrate (Lopressor) 25 mg PO TID [facility] Last Admin: 05/19/18 12:12 Dose: 25 mg Multivitamins/Minerals (Theragran-M) 1 tab PO DAILY [facility] Stop: 05/24/18 08:59 Last Admin: 05/19/18 08:43 Dose: 1 tab Ondansetron HCl (Zofran Inj) 4 mg IV.PUSH Q6H PRN PRN Reason: NAUSEA OR VOMITING Rivaroxaban (Xarelto) 15 mg PO DAILY [facility] Last Admin: 05/19/18 08:42 Dose: 15 mg Ropinirole HCl (Requip) 0.25 mg PO HS [facility] Senna/Docusate Sodium (Joseline-Colace) 1 tab PO BID [facility] Last Admin: 05/19/18 08:43 Dose: 1 tab Sennosides (Senokot) 17.2 mg PO Q12H PRN PRN Reason: Moderate Constipation Sodium Chloride (Ns Flush) 2 ml IV.FLUSH PRN PRN PRN Reason: FLUSH AFTER USING IV ACCESS Sodium Chloride (Ns Flush) 2 ml IV.FLUSH BID [facility] Last Admin: 05/19/18 08:41 Dose: 2 ml Thiamine HCl (Vitamin B1) 100 mg PO DAILY [facility] Last Admin: 05/19/18 12:15 Dose: 100 mg Allergies Allergy/AdvReac Type Severity Reaction Status Date / Time No Known Allergies Allergy Verified 05/04/18 08:16 Exam Vital signs: Vital Signs 05/18/18 21:06 05/18/18 21:29 05/18/18 23:31 Temperature 98.0 F Pulse Rate 140 H 140 H 135 H Respiratory Rate 22 Blood Pressure 132/77 123/81 Pulse Oximetry 93 L 95 05/19/18 00:31 05/19/18 01:53 05/19/18 02:18 Temperature Pulse Rate 98 H 91 H 98 H Respiratory Rate 20 18 20 Blood Pressure 141/72 H 123/81 129/90 Pulse Oximetry 96 95 95 05/19/18 03:00 05/19/18 04:00 05/19/18 05:00 Temperature 97.5 F L Pulse Rate 104 H 98 H 110 H Respiratory Rate 22 22 Blood Pressure 158/78 H 134/78 Pulse Oximetry 95 96 05/19/18 06:00 05/19/18 06:32 05/19/18 07:00 Temperature Pulse Rate 106 H 102 H 118 H Respiratory Rate 18 Blood Pressure Pulse Oximetry 94 L 90 L 05/19/18 08:00 05/19/18 08:54 05/19/18 09:00 Temperature 97.1 F L Pulse Rate 121 H 122 H Respiratory Rate 16 Blood Pressure 124/92 H Pulse Oximetry 90 L 92 L 05/19/18 10:00 05/19/18 11:00 05/19/18 12:00 Temperature 98.5 F Pulse Rate 92 H 94 H 106 H Respiratory Rate 16 Blood Pressure 145/82 H Pulse Oximetry 97 05/19/18 13:00 05/19/18 14:50 Temperature Pulse Rate 95 H 84 Respiratory Rate 20 Blood Pressure Pulse Oximetry Intake & Output 05/18/18 05/19/18 05/19/18 18:59 06:59 18:59 Intake Total 720 / 720 107 / 107 Output Total 1000 / 1000 Balance -280 / -280 107 / 107 Weight 97.6 kg Intake: IV 107 / 107 Cardizem Inj 125 MG In NS Inj 107 / 107 100 ML @ 5 MG/HR 5 mls/hr IV. CONT TITRATE PRN Rx#:[id number] Oral 720 / 720 Output: Urine Amount (Catheter) 1000 / 1000 Indwelling Urethral Catheter 1000 / 1000 Other: Date of Last Bowel Movement 05/19/18 Mental Status Examination Appearance: Disheveled Consciousness: Alert Orientation: x4 Motor Activity: Normal gait Speech: Slow Language: Adequate Fund of Knowledge: Adequate Attention and Concentration: Adequate Memory: Unremarkable Mood: Sad Affect: Blunt Thought Process & Associations: Intact Thought Content: Appropriate Hallucination Type: None Delusion Type: None Suicidal Ideation: Yes (denies but poor historian) Suicidal Plan: No Suicidal Intention: No Homicidal Ideation: No Homicidal Plan: No Homicidal Intention: No Insight: Poor Judgment: Poor Assessment and Plan - Assessment (1) Major depressive disorder, recurrent, moderate Code(s): F33.1 - Major depressive disorder, recurrent, moderate Status: Acute - Plan Plan: Transferred to the psychiatric unit once medically cleared Justification for Continued Inpatient Stay: Patient would decompensate in a less restrictive setting
--- NOTE | 2018-05-19 17:41 | P.PNIM ---
Patient seen. Nursing reports that he had some wheezing earlier this morning, was started on duo nebs. I saw the patient, he was being transferred with assistance from the chair to the bedside. Was awake but seemed to be disoriented. Unlabored breathing. At that time his lung exam was unremarkable with coarse breath sounds bilaterally. His demeanor was calm. Heart sounds were regular rate and rhythm.
--- NOTE | 2018-05-19 21:23 | XR ---
EXAM DATE: 05/19/2018 9:12 PM EST AGE/SEX: 73 years / Male INDICATIONS: Congestive heart failure. CLINICAL DATA: This is the patient's subsequent encounter. Patient reports that signs and symptoms h ave been present for 2 days and indicates a pain score of 0/10. MEDICAL/SURGICAL HISTORY: . Chronic obstructive pulmonary disease. Atrial fibrillation. None. COMPARISON: [facility] [place], CHEST 1V SINGLE AP, 05/18/2018. . FINDINGS: Cardiomegaly. Minimal basilar atelectasis. No effusion or pneumothorax. Mild scoliosis and tortuous a jaxon. CONCLUSION: Cardiomegaly with minimal basilar atelectasis. Electronically signed by: Nathan Freed MD Board Certified Radiologist 05/19/2018 9:22 PM EST
[2018-05-20] MEDS: LORazepam 1 MG Tablet PO PRN ×6 (00:27→22:36)
[2018-05-20 04:59] LABS: Eos # (Auto) 0.2 th/mm3 (0.0-0.4); Hematocrit 28.3 % (39.0-51.0); Hemoglobin 9.2 gm/dL (13.0-17.0); Lymph # (Auto) 0.6 th/mm3 (1.0-4.8); Lymph % (Auto) 12.6 % (9.0-44.0); Mean Corpuscular HGB Conc 32.5 % (32.0-36.0); Mean Corpuscular Hemoglobin 31.4 pg (27.0-34.0); Mean Corpuscular Volume 96.5 fL (80.0-100.0); Mean Platelet Volume 7.2 fL (7.0-11.0); Mono # (Auto) 0.4 th/mm3 (0.0-0.9); Mono % (Auto) 8.3 % (0.0-8.0); Neut # (Auto) 3.3 th/mm3 (1.8-7.7); Neut % (Auto) 74.1 % (16.0-70.0); Platelet Count 238 th/mm3 (150-450); Red Blood Count 2.93 mil/mm3 (4.50-5.90); Red Cell Distribution Width 17.9 % (11.6-17.2); White Blood Count 4.5 th/mm3 (4.0-11.0)
[2018-05-20] MEDS: dilTIAZem Inj 125 MG in Sodium Chlor 0.9% Inj 100 ML IV.CONT PRN ×2 (05:16→19:47)
[2018-05-20 05:26] LABS: Alanine Aminotransferase 18 U/L (12-78); Albumin 3.1 g/dL (3.4-5.0); Anion Gap 7 meq/L (5-15); Aspartate Aminotransferase 14 U/L (15-37); Blood Urea Nitrogen 10 mg/dL (7-18); Calcium 8.3 mg/dL (8.5-10.1); Carbon Dioxide 32.1 meq/L (21.0-32.0); Chloride 102 meq/L (98-107); Glomerular Filtration Rate 80 mL/min (>89); Glucose,Random 118 mg/dL (74-106); Potassium 3.1 meq/L (3.5-5.1); Sodium 141 meq/L (136-145)
[2018-05-20 05:28] LABS: Alkaline Phosphatase 121 U/L (45-117); Total Protein 6.9 g/dL (6.4-8.2)
[2018-05-20] MEDS: Multivitamin/Minerals Therapeutic Tablet PO SCH (09:31)
[2018-05-20] MEDS: Folic Acid 1 MG Tablet PO SCH (09:32)
[2018-05-20] MEDS: Senna/Docusate Sodium 8.6/50 MG Tablet PO SCH ×2 (09:32→20:21)
[2018-05-20] MEDS: Rivaroxaban 15 MG Tablet PO SCH (09:32)
[2018-05-20] MEDS: Metoprolol Tartrate 25 MG Tablet PO SCH ×3 (09:32→17:27)
--- NOTE | 2018-05-20 11:05 | P.PNIM ---
Subjective Interval history: Nursing reports that he was had some "fluid overload" last night, given a dose of Lasix with clearance of his lungs. Patient is lying in bed, says he is trying to get up. Physical Exam Vital signs: Vital Signs 05/19/18 12:00 05/19/18 13:00 05/19/18 14:00 Temperature 98.5 F Pulse Rate 106 H 95 H 87 Respiratory Rate 16 Blood Pressure 145/82 H Pulse Oximetry 97 05/19/18 14:50 05/19/18 15:00 05/19/18 16:00 Temperature 97.8 F Pulse Rate 84 76 76 Respiratory Rate 20 16 Blood Pressure 134/89 Pulse Oximetry 100 05/19/18 16:07 05/19/18 17:00 05/19/18 18:00 Temperature Pulse Rate 113 H 82 Respiratory Rate Blood Pressure Pulse Oximetry 97 05/19/18 19:00 05/19/18 20:00 05/19/18 20:40 Temperature 97.7 F Pulse Rate 110 H 108 H 103 H Respiratory Rate 16 24 Blood Pressure 136/77 Pulse Oximetry 94 L 97 05/19/18 21:00 05/19/18 22:00 05/19/18 22:54 Temperature Pulse Rate 103 H 119 H 103 H Respiratory Rate Blood Pressure Pulse Oximetry 98 05/19/18 23:24 05/20/18 00:00 05/20/18 00:31 Temperature 98 F Pulse Rate 97 H 92 H 102 H Respiratory Rate 16 18 Blood Pressure 145/89 H Pulse Oximetry 95 97 05/20/18 00:59 05/20/18 02:00 05/20/18 03:00 Temperature Pulse Rate 96 H 68 110 H Respiratory Rate Blood Pressure Pulse Oximetry 05/20/18 03:32 05/20/18 03:53 05/20/18 05:00 Temperature 98 F Pulse Rate 96 H 129 H 112 H Respiratory Rate 16 Blood Pressure 116/76 Pulse Oximetry 96 05/20/18 05:45 05/20/18 07:00 05/20/18 08:00 Temperature 98.0 F Pulse Rate 100 H 85 104 H Respiratory Rate 18 Blood Pressure 137/76 Pulse Oximetry 100 05/20/18 09:34 Temperature Pulse Rate 109 H Respiratory Rate 18 Blood Pressure Pulse Oximetry 98 Intake & Output 05/19/18 05/20/18 05/20/18 18:59 06:59 18:59 Intake Total 907 / 907 705 / 705 Output Total 550 / 550 5350 / 5350 Balance 357 / 357 -4645 / -4645 Weight 95.8 kg Intake: IV 107 / 107 225 / 225 Cardizem Inj 125 MG In NS Inj 107 / 107 125 / 125 100 ML @ 5 MG/HR 5 mls/hr IV. CONT TITRATE PRN Rx#:[id number] Rocephin Inj 1,000 MG In NS Inj 100 / 100 100 ML @ 200 mls/hr IV.SIG Q24H [facility] Rx#:[id number] Oral 800 / 800 480 / 480 Output: Urine Amount (Catheter) 550 / 550 5350 / 5350 Indwelling Urethral Catheter 550 / 550 5350 / 5350 Other: Date of Last Bowel Movement 05/19/18 05/19/18 05/19/18 # Bowel Movements 1 Narrative: Clear lungs bilaterally Heart sounds tachycardic and irregular Lying in bed, trying to get out of bed but seems incredibly exhausted No lower extremity edema Awake and alert, oriented x3 Urinary Catheter Management Indwelling Urethral Catheter: Cath placed during this visit: yes Reason for continuing: Hourly intake/output Insertion date: 05/18/18 Insertion time: 22:35 Results Labs CBC & Chem 7: 05/20/18 04:37 05/20/18 04:37 Labs: Microbiology 05/18/18 22:26 Clean Catch Urine Urine Culture - Preliminary Group D Enterococcus Imaging Imaging: Impressions Chest X-Ray 05/19/18 20:54 CONCLUSION: Cardiomegaly with minimal basilar atelectasis. Assessment and Plan (1) Major depressive disorder, recurrent, moderate: Code(s): F33.1 - Major depressive disorder, recurrent, moderate Status: Acute Plan 73-year-old white male admitted under Green act suicidal ideation, as well as A. fib with RVR. 1. Afib w/ RVR: -Still requiring Cardizem drip likely secondary to alcohol withdrawalcontinue as such, Lopressor, Cardizem . Obtaining echocardiogram for further evaluation 2. Alcohol Abuse: Chronic, heavy, CIWA, Seizure Precautions, MVT/Thiamine/ Folate replacement. adding on librium 3. Suicidal Ideation: to be discharged to psychiatry once medically clear 4. UTI: enterococcus, continue rocephin 5. DVT Prophylaxis: Xarelto Progress Note: Quality VTE Deep Vein Thrombosis/Pulmonary Embolism Present on Admission: No
[2018-05-20] MEDS ORDERED: Potassium Chloride Inj 20 MEQ, Magnesium Sulfate Inj 2 GM in Dextrose 5%/NaCl 0.45% Inj... IV.SIG ONE (12:00)
[2018-05-20] MEDS ORDERED: Haloperidol Inj 5 MG/ML Ampul IM ONE (15:17)
[2018-05-20] MEDS ORDERED: Metoprolol Inj 5 MG/5 ML Vial IV.PUSH ONE (15:18)
[2018-05-20] MEDS: Haloperidol Inj 5 MG/ML Ampul IV.PUSH PRN ×2 (19:02→21:02)
[2018-05-21] MEDS: Metoprolol Tartrate 25 MG Tablet PO SCH ×3 (08:59→17:59)
[2018-05-21] MEDS: Multivitamin/Minerals Therapeutic Tablet PO SCH (08:59)
[2018-05-21] MEDS: Folic Acid 1 MG Tablet PO SCH (09:00)
[2018-05-21] MEDS: Rivaroxaban 15 MG Tablet PO SCH (09:00)
[2018-05-21] MEDS: Senna/Docusate Sodium 8.6/50 MG Tablet PO SCH ×2 (09:00→20:41)
[2018-05-21 09:05] LABS: Calcium 8.5 mg/dL (8.5-10.1); Carbon Dioxide 36.2 meq/L (21.0-32.0); Potassium 3.7 meq/L (3.5-5.1)
[2018-05-21] MEDS ORDERED: dilTIAZem 30 MG Tablet PO ONE (09:05)
--- NOTE | 2018-05-21 12:30 | P.PNIM ---
Subjective Interval history: Patient reports the patient is on the lowest dose of Cardizem drip. He had to almost sternal rub him this morning to get him to wake up to take his medications. Patient himself has no complaints Awake,. Physical Exam Vital signs: Vital Signs 05/20/18 13:00 05/20/18 13:06 05/20/18 14:00 Temperature Pulse Rate 80 90 106 H Respiratory Rate 20 Blood Pressure Pulse Oximetry 05/20/18 15:00 05/20/18 16:00 05/20/18 17:00 Temperature 98.0 F Pulse Rate 88 85 90 Respiratory Rate 18 Blood Pressure 122/69 Pulse Oximetry 93 L 05/20/18 18:00 05/20/18 19:00 05/20/18 20:00 Temperature 97.8 F Pulse Rate 78 84 76 Respiratory Rate 18 Blood Pressure 147/75 H Pulse Oximetry 92 L 05/20/18 20:53 05/20/18 21:00 05/20/18 22:00 Temperature Pulse Rate 86 95 H 110 H Respiratory Rate 18 Blood Pressure Pulse Oximetry 96 05/20/18 22:42 05/20/18 23:00 05/21/18 00:00 Temperature 98 F Pulse Rate 97 H 97 H 79 Respiratory Rate 20 Blood Pressure 127/90 Pulse Oximetry 96 05/21/18 00:43 05/21/18 01:00 05/21/18 02:00 Temperature Pulse Rate 92 H 110 H 110 H Respiratory Rate 18 Blood Pressure Pulse Oximetry 05/21/18 03:00 05/21/18 03:10 05/21/18 04:00 Temperature 98 F Pulse Rate 93 H 118 H 123 H Respiratory Rate 20 Blood Pressure 127/76 Pulse Oximetry 94 L 05/21/18 05:00 05/21/18 05:40 05/21/18 07:00 Temperature Pulse Rate 110 H 103 H 87 Respiratory Rate Blood Pressure Pulse Oximetry 05/21/18 08:00 05/21/18 08:18 Temperature 97.7 F Pulse Rate 86 46 L Respiratory Rate 18 20 Blood Pressure 130/70 Pulse Oximetry 97 94 L Intake & Output 05/20/18 05/21/18 05/21/18 18:59 06:59 18:59 Intake Total 1325 / 1325 580 / 580 Output Total 1300 / 1300 4900 / 4900 Balance -4320 / -4320 Weight 93.5 kg Intake: IV 125 / 125 100 / 100 Cardizem Inj 125 MG In NS Inj 125 / 125 100 ML @ 5 MG/HR 5 mls/hr IV. CONT TITRATE PRN Rx#:[id number] Rocephin Inj 1,000 MG In NS Inj 100 / 100 100 ML @ 200 mls/hr IV.SIG Q24H BALBINA Rx#:[id number] Oral 1200 / 1200 480 / 480 Output: Urine 1300 / 1300 Urine Amount (Catheter) 4900 / 4900 Indwelling Urethral Catheter 4900 / 4900 Other: Date of Last Bowel Movement 05/19/18 05/19/18 05/20/18 # Bowel Movements 1 Narrative: Clear lungs bilaterally, currently getting a breathing treatment Heart sounds are regular rate and rhythm while on the diltiazem drip No lower extremity edema Awake and alert, Urinary Catheter Management Indwelling Urethral Catheter: Cath placed during this visit: yes Reason for continuing: Hourly intake/output Insertion date: 05/18/18 Insertion time: 22:35 Results Labs CBC & Chem 7: 05/20/18 04:37 05/21/18 08:35 Labs: Microbiology 05/18/18 22:26 Clean Catch Urine Urine Culture - Final Enterococcus faecalis Assessment and Plan (1) Major depressive disorder, recurrent, moderate: Code(s): F33.1 - Major depressive disorder, recurrent, moderate Status: Acute Plan 73-year-old white male admitted under Green act suicidal ideation, as well as A. fib with RVR. Afib w/ RVR: -Echocardiogram pending, wean off Cardizem drip, increased doses of Lopressor and starting oral Cardizem, xarelto Possible shortness of breath Chest x-ray which had been reviewed shows minimal pulmonary edema pedal, hold off on IV fluids, hold off on further Lasix, wean oxygen GAIL UTI -enterococcus, rocephin Heavy alcohol use CIWA protocol with scheduled Librium Was suicidal ideation To be discharged to psychiatry once vital signs are stable, appreciate psychiatry input Progress Note: Quality VTE Deep Vein Thrombosis/Pulmonary Embolism Present on Admission: No
[2018-05-21] MEDS: dilTIAZem 30 MG Tablet PO SCH ×3 (15:03→20:41)
--- NOTE | 2018-05-21 16:47 | XR ---
EXAM DATE: 05/21/2018 4:45 PM EST AGE/SEX: 73 years / Male INDICATIONS: Short of breath CLINICAL DATA: This is the patient's subsequent encounter. Patient reports that signs and symptoms h ave been present for 4 - 6 days and indicates a pain score of 0/10. MEDICAL/SURGICAL HISTORY: . Chronic obstructive pulmonary disease. Atrial fibrillation None. COMPARISON: [facility] [place], CHEST 1V SINGLE AP, 05/19/2018. . FINDINGS: Cardiomegaly. Clear lungs. Osseous structures are intact. CONCLUSION: The lungs are clear. Electronically signed by: David Gates MD Board Certified Radiologist 05/21/2018 4:45 PM EST
--- NOTE | 2018-05-21 18:56 | ECHRPT ---
Indication: afib and flutter CONCLUSIONS In limited views, the left ventricular systolic function is moderately reduced with an estimated eje ction fraction in the range of 40-45%. Mild concentric left ventricular hypertrophy. There is mild tricuspid valve regurgitation. There is estimated mild pulmonary hypertension present (range 40-50 mmHg). BP: / HR: Rhythm: MEASUREMENTS (Male / Female) Normal Values Technical Quality: 2D ECHO LV Diastolic Diameter PLAX 4.4 cm 4.2 - 5.9 / 3.9 - 5.3 cm LV Systolic Diameter PLAX 3.9 cm IVS Diastolic Thickness 1.2 cm 0.6 - 1.0 / 0.6 - 0.9 cm LVPW Diastolic Thickness 1.4 cm 0.6 - 1.0 / 0.6 - 0.9 cm LV Relative Wall Thickness 0.6 RV Internal Dim ED PLAX 3.6 cm LVOT Diameter 2.1 cm Aortic Root Diameter 3.8 cm LA Systolic Diameter LX 4.4 cm 3.0 - 4.0 / 2.7 - 3.8 cm M-MODE Aortic Root Diameter MM 1.1 cm LA Systolic Diameter MM 5.3 cm LA Ao Ratio MM 4.8 AV Cusp Separation MM 2.2 cm DOPPLER AV Peak Velocity 122.0 cm/s AV Peak Gradient 6.0 mmHg LVOT Peak Velocity 97.2 cm/s LVOT Peak Gradient 3.8 mmHg AV Area Cont Eq pk 2.8 cm Mitral E Point Velocity 113.0 cm/s TR Peak Velocity 316.0 cm/s TR Peak Gradient 39.9 mmHg Right Atrial Pressure 10.0 mmHg Pulmonary Artery Systolic Pressu 49.9 mmHg Right Ventricular Systolic Press 49.9 mmHg PV Peak Velocity 111.0 cm/s PV Peak Gradient 4.9 mmHg FINDINGS LEFT VENTRICLE Normal left ventricular size. Mild concentric left ventricular hypertrophy. In limited views, the left ventricular systolic function is moderately reduced with an estimated eje ction fraction in the range of 40-45%. RIGHT VENTRICLE Grossly normal LEFT ATRIUM The left atrial size is mildly dilated. RIGHT ATRIUM The right atrial size is normal. ATRIAL SEPTUM Normal atrial septal thickness AORTA The aortic root and proximal ascending aorta are normal in size on limited imaging. MITRAL VALVE Structurally normal mitral valve. No mitral valve stenosis or regurgitation. AORTIC VALVE Probable trileaflet aortic valve. No aortic valve stenosis or regurgitation. TRICUSPID VALVE There is mild tricuspid valve regurgitation. The estimated pulmonary arterial pressure is 50 mmHg. There is estimated mild pulmonary hypertension present (range 40-50 mmHg). PULMONARY VALVE No pulmonary valve regurgitation or stenosis. VESSELS The inferior vena cava is normal in size. PERICARDIUM No pericardial effusion. Oc Dominguez DO (Electronically Signed) Final Date:21 May 2018 18:55
[2018-05-21] MEDS: LORazepam 1 MG Tablet PO PRN (20:41)
[2018-05-22] MEDS: Multivitamin/Minerals Therapeutic Tablet PO SCH (08:44)
[2018-05-22] MEDS: Senna/Docusate Sodium 8.6/50 MG Tablet PO SCH ×2 (08:45→21:19)
[2018-05-22] MEDS: dilTIAZem 30 MG Tablet PO SCH (08:45)
[2018-05-22] MEDS: Folic Acid 1 MG Tablet PO SCH (08:45)
[2018-05-22] MEDS: Metoprolol Tartrate 25 MG Tablet PO SCH ×3 (08:45→17:31)
[2018-05-22] MEDS: Rivaroxaban 15 MG Tablet PO SCH (08:45)
[2018-05-22] MEDS: Sod Chloride 0.9% Inj 1,000 ML IV.CONT SCH ×2 (09:31→09:32)
--- NOTE | 2018-05-22 12:07 | P.PNIM ---
Subjective Interval history: sleeping- got upset when woken up "you ladies chill" staff reported apneic episodes telemeyry in a fib- rate controlled prado removed yesterday- not voided- straight cath laste evening - 800 cc out no output since- prado placed now 1200 cc out Physical Exam Vital signs: Vital Signs 05/21/18 12:00 05/21/18 13:00 05/21/18 14:00 Temperature 98.1 F Pulse Rate 70 86 95 H Respiratory Rate 18 Blood Pressure 147/75 H Pulse Oximetry 98 05/21/18 14:16 05/21/18 15:00 05/21/18 16:00 Temperature 98.1 F Pulse Rate 84 122 H 82 Respiratory Rate 20 18 Blood Pressure 98/58 L Pulse Oximetry 95 100 05/21/18 17:00 05/21/18 18:00 05/21/18 19:00 Temperature Pulse Rate 76 90 105 H Respiratory Rate Blood Pressure Pulse Oximetry 05/21/18 20:00 05/21/18 20:03 05/21/18 21:00 Temperature 98 F Pulse Rate 92 H 82 102 H Respiratory Rate 18 18 Blood Pressure 118/62 Pulse Oximetry 97 98 05/21/18 22:00 05/21/18 23:00 05/22/18 00:00 Temperature 97.1 F L Pulse Rate 94 H 105 H 100 H Respiratory Rate 20 Blood Pressure 107/67 Pulse Oximetry 96 05/22/18 00:54 05/22/18 01:00 05/22/18 02:00 Temperature Pulse Rate 88 96 H 98 H Respiratory Rate 18 Blood Pressure Pulse Oximetry 05/22/18 03:00 05/22/18 04:00 05/22/18 05:00 Temperature 97.5 F L Pulse Rate 90 90 110 H Respiratory Rate 11 L Blood Pressure 147/81 H Pulse Oximetry 96 05/22/18 06:00 05/22/18 07:00 05/22/18 08:00 Temperature 98.2 F Pulse Rate 103 H 112 H 104 H Respiratory Rate 18 Blood Pressure 98/64 L Pulse Oximetry 96 05/22/18 08:04 05/22/18 08:05 05/22/18 09:00 Temperature Pulse Rate 110 H 110 H Respiratory Rate 22 Blood Pressure Pulse Oximetry 98 05/22/18 10:00 05/22/18 11:00 05/22/18 11:27 Temperature 98.0 F Pulse Rate 112 H 108 H 92 H Respiratory Rate 18 Blood Pressure 140/87 Pulse Oximetry 97 Intake & Output 05/21/18 05/22/18 05/22/18 18:59 06:59 18:59 Intake Total 720 / 720 240 / 240 2238 Output Total 700 / 700 650 / 650 Balance -410 / -410 2238 Weight 93 kg Intake: IV 2238 Cardizem Inj 125 MG In NS Inj 125 / 125 100 ML @ 5 MG/HR 5 mls/hr IV. CONT TITRATE PRN Rx#:[id number] Rocephin Inj 1,000 MG In NS Inj 100 / 100 100 ML @ 200 mls/hr IV.SIG Q24H BALBINA Rx#:[id number] Oral 720 / 720 240 / 240 Output: Urine Amount (Catheter) 700 / 700 650 / 650 Indwelling Urethral Catheter 700 / 700 Straight 650 / 650 Other: Date of Last Bowel Movement 05/20/18 05/20/18 Narrative: drowsy- but easily awakens, ff all commands when woken up- speech celar, oriented x 3 anciteric neck supple decrease breth sounds, no rales irregularly irregular rhtyhm abdomen soft, globular nontender extrrmeites - trace pretibial edema moves all extremities for luz to commands Urinary Catheter Management Straight: Cath placed during this visit: no Indwelling Urethral Catheter: Cath placed during this visit: yes, but has since been removed by the nurse Reason for continuing: Acute urinary retention Insertion date: 05/22/18 Insertion time: 11:20 Removal date: 05/21/18 Removal time: 18:00 Results Labs CBC & Chem 7: 05/20/18 04:37 05/22/18 13:29 Labs: Microbiology 05/18/18 22:26 Clean Catch Urine Urine Culture - Final Enterococcus faecalis Imaging Imaging: Impressions Chest X-Ray 05/21/18 00:00 CONCLUSION: The lungs are clear. Assessment and Plan (1) Major depressive disorder, recurrent, moderate: Code(s): F33.1 - Major depressive disorder, recurrent, moderate Status: Acute Plan 73-year-old white male admitted under Green act suicidal ideation, as well as A. fib with RVR. Afib w/ RVR- now better controlled Acute Systolic HF with underlying cardiomyopathy- ? Alcohol CMP -Echocardiogram - EF 40-45% - on Lopressor 25 mg tid - change to Cardizem long acting 120 mg today - if persists get Cardiology consult for recommendation - start Pravin- Linsopril 2.5 mg daily - received IV lasix last evening for acute SOB/CHF - start po Lasix 20 mg daily - continue on Xarelto 15 mg daily Acute urinary retention history of Prostate cancer - straight cath 2x with 24 hours - prado placed today 1200 cc out - states he has a urologist - will let us know who - start Flomax 0,4 mg daily - voiding trial in 3 days UTI -enterococcus, rocephin Heavy alcohol use CIWA protocol - change to Librium prn- patient with reported apneic episodes EMILE suspect- apneic episodes reported Underlying COPD- "smokes as much as I can" - Pulmonary consult- - get an ABG, PFTs - hold benzos Was suicidal ideation - now denies - To be discharged to psychiatry once vital signs are stable, appreciate psychiatry input OOB to chair and ambulate PT- history of falls Progress Note: Quality VTE Deep Vein Thrombosis/Pulmonary Embolism Present on Admission: No
[2018-05-22] MEDS: Furosemide 20 MG Tablet PO SCH (12:08)
[2018-05-22] MEDS: dilTIAZem CD 120 MG Capsule PO SCH (13:03)
[2018-05-22 14:46] LABS: Calcium 8.8 mg/dL (8.5-10.1); Carbon Dioxide 33.4 meq/L (21.0-32.0); Potassium 3.8 meq/L (3.5-5.1)
[2018-05-22 15:12] LABS: ABG Base Excess 8.4 mmol/L (-2-2); ABG PCO2 57 mmHg (38-42); ABG PO2 92 mmHG (61-120)
--- NOTE | 2018-05-22 20:54 | MB ---
cc: Americo Vidal MD DATE: 05/22/2018 DATE OF CONSULTATION: 05/22/2018 REQUESTING PHYSICIAN: Dr. Hood. REASON FOR CONSULTATION: COPD exacerbation. HISTORY OF PRESENT ILLNESS: Mr. Mckinney is a 73-year-old male with history of COPD, hypertension, and atrial fibrillation. The patient follows at [facility] . He was brought over by the EMS . The patient states that he has a tendency to fall, his knees give and he falls down. He was brought by the evac and was found to have atrial fibrillation with rapid ventricular rate. He was started on the Cardizem drip. Currently, he is on nasal cannula. Has mild shortness of breath. No fevers, chills or night sweats. Denies any chest pain. He does have a history of COPD and uses oxygen at home. Denies any sleep apnea. He does use Xarelto at home. LABORATORY EVALUATION: WBC 24.5, hemoglobin 9.2, hematocrit 28.3, ANC 96, platelet count 248. Sodium 140, potassium 3.8, chloride 100, CO2 of 33, BUN 11, creatinine 0.9. Blood gas pH 7.39, pCO2 of 57, pO2 of 92, bicarbonate 34, saturation 84% on 4 liter nasal cannula. PAST MEDICAL HISTORY: Significant for history of COPD, atrial fibrillation, hypertension, nicotine use, alcohol use, cataract surgery. MEDICATIONS: He is currently taking albuterol and Atrovent nebulizer treatment, Rocephin 1 g a day, diltiazem 120 mg twice a day, Lasix 20 mg a day, Haldol p.r.n., Ativan p.r.n., Requip 0.25 mg b.i.d., Xarelto 15 mg a day, Flomax 0.4 mg a day. ALLERGIES: NO KNOWN DRUG ALLERGIES. SOCIAL HISTORY: He is , lives alone. He has 2 children. He is has a long history of smoking and continues to smoke 1/2 pack of cigarettes and takes 4-6 drinks a day. 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 FAMILY HISTORY: He has 2 children. REVIEW OF SYSTEMS: The patient states normally he is up, around, and active. He is weak and has multiple falls. No seizures, DVT, pulmonary embolus. PHYSICAL EXAMINATION: GENERAL: Reveals a well-developed, well-nourished male not in any acute distress, mild shortness of breath. His sitter is at the bedside. VITAL SIGNS: His blood pressure is 110/84, heart rate 90, respirations 18, temperature 97.8. HEENT: Pupils are equal and reactive to light. He has bilateral cataract surgery. Oral and nasal mucosa normal. NECK: Supple. JVP not raised. CHEST: He has bilateral expiratory rhonchi. CARDIOVASCULAR: S1, S2 normal. ABDOMEN: Soft, nondistended. Bowel sounds are present. EXTREMITIES: No edema. CENTRAL NERVOUS SYSTEM: Alert, oriented. No focal deficit. IMPRESSION: 1. Chronic obstructive pulmonary disease with exacerbation. 2. Atrial fibrillation with rapid ventricular rate. 3. Alcohol use. 4. Nicotine use. 5. Hypertension. PLAN: 1. I discussed with the patient I will start him on some Solu-Medrol 40 mg every 6 hours. 2. Symbicort 2 puffs twice a day. 3. Continue aerosol treatment 4. Xarelto 15 mg. 5. Continue to supplement his oxygen. 6. We will check pulmonary function study when he gets better . MD ROB Dejesus/noreen , 07:16 PM , 07:26 PM MTDD
[2018-05-22] MEDS: MethylPREDNISolone Sod Succinate Inj 40 MG/ML Vial IV.PUSH SCH (21:19)
[2018-05-22] MEDS: Budesonide-Formoterol 160/4.5 MCG 6 GM Inhaler INH SCH (21:20)
[2018-05-23] MEDS: MethylPREDNISolone Sod Succinate Inj 40 MG/ML Vial IV.PUSH SCH ×4 (02:51→21:27)
--- NOTE | 2018-05-23 07:44 | P.PNIM ---
Subjective Interval history: patient awake and aklert, denies any chest pain or shortness of breath "Kerwin, stop asking me this questions" complains of being hungry- "get me some food" on telemetry- a fib- rate 120s- states some palpitations Physical Exam Vital signs: Vital Signs 05/22/18 08:00 05/22/18 08:04 05/22/18 08:05 Temperature 98.2 F Pulse Rate 104 H 110 H Respiratory Rate 18 22 Blood Pressure 98/64 L Pulse Oximetry 96 98 05/22/18 09:00 05/22/18 10:00 05/22/18 11:00 Temperature Pulse Rate 110 H 112 H 108 H Respiratory Rate Blood Pressure Pulse Oximetry 05/22/18 11:27 05/22/18 12:00 05/22/18 13:00 Temperature 98.0 F Pulse Rate 92 H 86 91 H Respiratory Rate 18 Blood Pressure 140/87 Pulse Oximetry 97 05/22/18 14:00 05/22/18 14:52 05/22/18 15:00 Temperature 97.8 F Pulse Rate 93 H 79 94 H Respiratory Rate 18 20 Blood Pressure 110/84 Pulse Oximetry 95 97 05/22/18 16:00 05/22/18 17:00 05/22/18 18:00 Temperature Pulse Rate 86 89 90 Respiratory Rate Blood Pressure Pulse Oximetry 05/22/18 19:00 05/22/18 20:00 05/22/18 21:00 Temperature 97.9 F Pulse Rate 91 H 90 114 H Respiratory Rate 18 Blood Pressure 100/66 Pulse Oximetry 97 05/22/18 21:03 05/22/18 22:00 05/22/18 23:00 Temperature Pulse Rate 99 H 120 H 110 H Respiratory Rate 16 Blood Pressure Pulse Oximetry 94 L 05/22/18 23:32 05/23/18 00:00 05/23/18 00:45 Temperature 98.0 F Pulse Rate 107 H 110 H 93 H Respiratory Rate 18 18 Blood Pressure 122/78 Pulse Oximetry 95 05/23/18 01:00 05/23/18 02:00 05/23/18 03:00 Temperature Pulse Rate 110 H 99 H 125 H Respiratory Rate Blood Pressure Pulse Oximetry 05/23/18 04:00 05/23/18 04:36 05/23/18 05:00 Temperature 98.3 F Pulse Rate 110 H 100 H 125 H Respiratory Rate 18 22 Blood Pressure 87/69 L Pulse Oximetry 97 05/23/18 05:31 05/23/18 06:00 Temperature Pulse Rate 127 H Respiratory Rate Blood Pressure Pulse Oximetry 99 Intake & Output 05/22/18 05/23/18 05/23/18 18:59 06:59 18:59 Intake Total 3164 / 3164 100 / 100 Output Total 1250 / 1250 Balance 1914 / 1914 100 / 100 Intake: IV 2239 / 2239 100 / 100 Cardizem Inj 125 MG In NS Inj 125 / 125 100 ML @ 5 MG/HR 5 mls/hr IV. CONT TITRATE PRN Rx#:[id number] Rocephin Inj 1,000 MG In NS Inj 100 / 100 100 / 100 100 ML @ 200 mls/hr IV.SIG Q24H BALBINA Rx#:[id number] Oral 925 / 925 Output: Urine Amount (Catheter) 1250 / 1250 Indwelling Urethral Catheter 1250 / 1250 Other: # Bowel Movements 0 Narrative: awake and alert, no acute distress, oriented x 3, cranky demeanor anicteric neck supple decreased breath sounds, no rales, no rhnchis irregular rhythm abdomen- globuylarly soft, nontender extremities no edema Urinary Catheter Management Straight: Cath placed during this visit: no Indwelling Urethral Catheter: Cath placed during this visit: yes, but has since been removed by the nurse Reason for continuing: Acute urinary retention Insertion date: 05/22/18 Insertion time: 11:20 Removal date: 05/21/18 Removal time: 18:00 Results Labs CBC & Chem 7: 05/20/18 04:37 05/22/18 13:29 Assessment and Plan (1) Major depressive disorder, recurrent, moderate: Code(s): F33.1 - Major depressive disorder, recurrent, moderate Status: Acute Plan 73-year-old white male admitted under Green act suicidal ideation, as well as A. fib with RVR. Afib w/ RVR- rate up again overnight Acute systolic HF underlying cardiomyopathy - -Echocardiogram - EF 40-45% - on Lopressor 25 mg tid- increase to 50 mg tid - changed to Cardizem long acting 120 mg -05/22 - started on Pravin- Linsopril 2.5 mg daily - Lasix 20 mg daily - continue on Xarelto 15 mg daily - give x 1 digoxin .25 mcg IV now - consult Cardiology- states ff with [facility] in [place]- Dr. Chery - ? DC cardizem with negative inotropic effect and increase BB- will defer to cardiology Acute urinary retention history of Prostate cancer - straight cath 2x - 05/21 - prado placed today 1200 cc out 05.22 - states he has a urologist - will let us know who - start Flomax 0,4 mg daily 05/22 - voiding trial in 3 days - Urology consult UTI -enterococcus faecalis- colonies <75,000 -was started on rocephin- 05/19 -we will discontinue -UA no pyuria Heavy alcohol use CIWA protocol - change to Librium prn- patient with reported apneic episodes EMILE suspect- apneic episodes reported Underlying COPD- "smokes as much as I can" - Pulmonary ff- a[reciate Dr. Vidal seeing patient - hold benzos Was suicidal ideation - now denies - To be discharged to psychiatry once vital signs are stable, appreciate psychiatry input OOB to chair and ambulate PT- history of falls Progress Note: Quality VTE Deep Vein Thrombosis/Pulmonary Embolism Present on Admission: No
[2018-05-23] MEDS: Rivaroxaban 15 MG Tablet PO SCH (08:57)
[2018-05-23] MEDS: Budesonide-Formoterol 160/4.5 MCG 6 GM Inhaler INH SCH ×2 (08:57→22:29)
[2018-05-23] MEDS: Senna/Docusate Sodium 8.6/50 MG Tablet PO SCH ×2 (08:57→21:28)
[2018-05-23] MEDS: Furosemide 20 MG Tablet PO SCH (08:57)
[2018-05-23] MEDS: dilTIAZem CD 120 MG Capsule PO SCH (08:58)
[2018-05-23] MEDS: Metoprolol Tartrate 25 MG Tablet PO SCH (08:58)
[2018-05-23] MEDS: Folic Acid 1 MG Tablet PO SCH (08:58)
[2018-05-23] MEDS: Multivitamin/Minerals Therapeutic Tablet PO SCH (08:58)
[2018-05-23] MEDS ORDERED: Digoxin Inj 500 MCG/2 ML Ampul IV.PUSH ONE (09:00)
[2018-05-23] MEDS ORDERED: Metoprolol Tartrate 25 MG Tablet PO ONE (12:28)
[2018-05-23] MEDS ORDERED: Chlorhexidine Gluconate 2% 1 Pack (2 Cloths) TOPICAL ONE (12:28)
[2018-05-23] MEDS ORDERED: Clindamycin 600 mg/NS Premix 600 MG/50 ML PIGGYBACK IV.SIG SCH (12:30)
[2018-05-23] MEDS ORDERED: Sodium Chlor 0.9% Inj 500 ML IV.SIG SCH (13:00)
--- NOTE | 2018-05-23 13:10 | P.CONURO ---
History of Present Illness Service: Consult date: 05/23/18 Requesting Physician: Dionne Hood Reason for Consult: Urinary retention Primary Care Provider: UNKNOWN Chief Complaint: SI History of Present Illness: 73-year-old gentleman with history prostate cancer who was admitted for atrial fibrillation and suicidal ideation. During the course of his hospitalization he developed urinary retention and a Munoz catheter was placed. A urology consult was placed for further recommendations. The patient does have a history of prostate cancer treated with radiation therapy 1 year ago. He is under the care of a local urologist Dr. Brown and follows with him. Patient reports that he has not had any problems with urinary retention since the radiation therapy. He denies dysuria or gross hematuria. Since the Munoz catheter has been placed it has been draining clear yellow urine. Review of Systems All other systems reviewed negative except as stated in HPI PMFSH - History History Provided By: Patient - Medical History Medical History: Medical History (Last Reviewed 05/23/18 @ 07:53 by Ashkan Taylor) Atrial fibrillation COPD (chronic obstructive pulmonary disease) Prostate CA - Surgical History Surgical History: Surgical History (Last Reviewed 05/23/18 @ 07:53 by Ashkan Taylor) S/P TURP - Tobacco History Second Hand Smoke Exposure: No Tobacco Use In Past 30 Days: Yes Smoking Status: Current every day smoker Tobacco Type: Cigarettes - Alcohol History How Often Do You Have a Drink Containing Alcohol: 4 or more times a week - Substance Use History Substance History: No History of Abuse - Substance Use Type Alcohol Status: Active Route Used: By Mouth Reason for Use: Calm Down, Feels Good - Travel History Recent Travel in the [place] Within the Last 8 Weeks: No Recent Travel Out of the Country Within the Last 8 Weeks: No - Immunization History Tetanus Immunization: Unsure Medications and Allergies Active Medications: Active Medications Acetaminophen (Tylenol) 650 mg PO Q4H PRN PRN Reason: Temp > 100.4 Al Hydroxide/Mg Hydroxide (Milk Of Magnfelecia Liq) 30 ml PO Q12H PRN PRN Reason: Mild Constipation Albuterol (Duoneb Neb (Bernabe)) 1 ampul NEB Q6HR ALT NEB BERNABE Last Admin: 05/23/18 04:36 Dose: 1 ampul Bisacodyl (Dulcolax Supp) 10 mg RECTAL DAILY PRN PRN Reason: SEVERE CONSITIPATION Budesonide/Formoterol Fumarate (Symbicort 160/4.5 Mcg Inh) 2 puff INH BID [facility] Last Admin: 05/23/18 08:57 Dose: 2 puff Chlordiazepoxide (Librium) 5 mg PO Q8H PRN PRN Reason: DELERIUM TREMENS Diltiazem HCl (Cardizem Cd 24hr) 120 mg PO DAILY [facility] Last Admin: 05/23/18 08:58 Dose: 120 mg Flumazenil (Romazicon Inj) 0.2 mg IV.PUSH Q1M PRN PRN Reason: OVERSEDATION Folic Acid (Folic Acid) 1 mg PO DAILY [facility] Stop: 05/24/18 08:59 Last Admin: 05/23/18 08:58 Dose: 1 mg Furosemide (Lasix) 20 mg PO DAILY [facility] Last Admin: 05/23/18 08:57 Dose: 20 mg Haloperidol Lactate (Haldol Inj) 1 mg IV.PUSH Q15M PRN PRN Reason: for severe agitation Last Admin: 05/20/18 21:02 Dose: 1 mg Diltiazem HCl 125 mg/ Sodium (Chloride) 125 mls @ 5 mls/hr IV.CONT TITRATE PRN ; Protocol PRN Reason: Per Protocol Last Titration: 05/22/18 09:31 Dose: Infused Ipratropium [place] (Atrovent Neb) 0.5 mg NEB Q4HR NEB PRN PRN Reason: sob Last Admin: 05/19/18 14:50 Dose: 0.5 mg Lactulose (Lactulose Liq) 30 ml PO DAILY PRN PRN Reason: SEVERE CONSITIPATION Lorazepam (Ativan Inj) 1 mg IV.PUSH Q4H PRN PRN Reason: for CIWA 8-10 Lorazepam (Ativan Inj) 2 mg IV.PUSH Q15M PRN PRN Reason: for CIWA > 20 Lorazepam (Ativan Inj) 2 mg IV.PUSH Q1H PRN PRN Reason: for CIWA 15-20 Last Admin: 05/19/18 06:51 Dose: 2 mg Lorazepam (Ativan) 1 mg PO Q4H PRN PRN Reason: for CIWA 8-10 Last Admin: 05/21/18 20:41 Dose: 1 mg Lorazepam (Ativan) 2 mg PO Q2H PRN PRN Reason: for CIWA 11-14 Last Admin: 05/23/18 06:48 Dose: 2 mg Lorazepam (Ativan Inj) 2 mg IV.PUSH Q2H PRN PRN Reason: for 02-14 Methylprednisolone Sodium Succinate (Solumedrol Inj) 40 mg IV.PUSH Q6H [facility] Last Admin: 05/23/18 08:57 Dose: 40 mg Metoprolol Tartrate (Lopressor) 50 mg PO BID [facility] Multivitamins/Minerals (Theragran-M) 1 tab PO DAILY [facility] Stop: 05/24/18 08:59 Last Admin: 05/23/18 08:58 Dose: 1 tab Ondansetron HCl (Zofran Inj) 4 mg IV.PUSH Q6H PRN PRN Reason: NAUSEA OR VOMITING Rivaroxaban (Xarelto) 15 mg PO DAILY [facility] Last Admin: 05/23/18 08:57 Dose: 15 mg Ropinirole HCl (Requip) 0.25 mg PO HS [facility] Last Admin: 05/22/18 21:20 Dose: 0.25 mg Senna/Docusate Sodium (Joseline-Colace) 1 tab PO BID [facility] Last Admin: 05/23/18 08:57 Dose: 1 tab Sennosides (Senokot) 17.2 mg PO Q12H PRN PRN Reason: Moderate Constipation Sodium Chloride (Ns Flush) 2 ml IV.FLUSH PRN PRN PRN Reason: FLUSH AFTER USING IV ACCESS Sodium Chloride (Ns Flush) 2 ml IV.FLUSH BID [facility] Last Admin: 05/23/18 08:58 Dose: 2 ml Tamsulosin HCl (Flomax) 0.4 mg PO DAILY [facility] Last Admin: 05/23/18 08:58 Dose: 0.4 mg Thiamine HCl (Vitamin B1) 100 mg PO DAILY [facility] Last Admin: 05/23/18 08:58 Dose: 100 mg Allergies Allergy/AdvReac Type Severity Reaction Status Date / Time No Known Allergies Allergy Verified 05/04/18 08:16 Physical Exam Vital Signs - 24 hr 05/22/18 14:00 05/22/18 14:52 05/22/18 15:00 Temperature 97.8 F Pulse Rate 93 H 79 94 H Respiratory Rate 18 20 Blood Pressure 110/84 Pulse Oximetry 95 97 05/22/18 16:00 05/22/18 17:00 05/22/18 18:00 Temperature Pulse Rate 86 89 90 Respiratory Rate Blood Pressure Pulse Oximetry 05/22/18 19:00 05/22/18 20:00 05/22/18 21:00 Temperature 97.9 F Pulse Rate 91 H 90 114 H Respiratory Rate 18 Blood Pressure 100/66 Pulse Oximetry 97 05/22/18 21:03 05/22/18 22:00 05/22/18 23:00 Temperature Pulse Rate 99 H 120 H 110 H Respiratory Rate 16 Blood Pressure Pulse Oximetry 94 L 05/22/18 23:32 05/23/18 00:00 05/23/18 00:45 Temperature 98.0 F Pulse Rate 107 H 110 H 93 H Respiratory Rate 18 18 Blood Pressure 122/78 Pulse Oximetry 95 05/23/18 01:00 05/23/18 02:00 05/23/18 03:00 Temperature Pulse Rate 110 H 99 H 125 H Respiratory Rate Blood Pressure Pulse Oximetry 05/23/18 04:00 05/23/18 04:36 05/23/18 05:00 Temperature 98.3 F Pulse Rate 110 H 100 H 125 H Respiratory Rate 18 22 Blood Pressure 87/69 L Pulse Oximetry 97 05/23/18 05:31 05/23/18 06:00 05/23/18 07:00 Temperature Pulse Rate 127 H 115 H Respiratory Rate Blood Pressure Pulse Oximetry 99 05/23/18 08:00 05/23/18 09:00 05/23/18 10:00 Temperature 97.9 F Pulse Rate 122 H 123 H 113 H Respiratory Rate 18 Blood Pressure 128/58 L Pulse Oximetry 95 05/23/18 11:00 05/23/18 11:37 05/23/18 12:00 Temperature 98.2 F Pulse Rate 115 H 123 H 132 H Respiratory Rate 18 Blood Pressure 132/84 Pulse Oximetry 98 Physical Exam: GENERAL: This is a well-nourished, well-developed patient, in no apparent distress. SKIN: No rashes, ecchymoses or lesions. Cool and dry. HEAD: Atraumatic. Normocephalic. No temporal or scalp tenderness. EYES: Pupils equal round and reactive. Extraocular motions intact. No scleral icterus. No injection or drainage. ENT: Nose without bleeding, purulent drainage or septal hematoma. Throat without erythema, tonsillar hypertrophy or exudate. Uvula midline. Airway patent. NECK: Trachea midline. No JVD or lymphadenopathy. Supple, nontender, no meningeal signs. GASTROINTESTINAL: Abdomen soft, non-tender, nondistended. No hepato-splenomegaly , or palpable masses. No guarding. GENITOURINARY: Bladder not distended, Munoz catheter draining clear yellow urine. MUSCULOSKELETAL: Extremities without clubbing, cyanosis, or edema. No joint tenderness, effusion, or edema noted. No calf tenderness. Negative Homans sign bilaterally. NEUROLOGICAL: Awake and alert. Cranial nerves II through XII intact. Motor and sensory grossly within normal limits. Five out of 5 muscle strength in all muscle groups. Normal speech. Laboratory Results - last 24 hr 05/22/18 05/22/18 05/22/18 13:29 13:29 15:00 Puncture Site Right radial Patient Temperature 98.6 O2 Saturation 94 ABG pH 7.39 ABG pCO2 57 H* ABG pO2 92 ABG HCO3 34 H ABG O2 Content 12.6 ABG Base Excess 8.4 H ABG Methemoglobin 1.3 Josiah Test Present Hemoglobin 9.4 L Carboxyhemoglobin 1.6 O2 Delivery Device Nasal cannula Liter Flow 4.00 Critical Value Yes Sodium 140 Potassium 3.8 Chloride 100 Carbon Dioxide 33.4 H Anion Gap 7 BUN 11 Creatinine 0.94 Estimated GFR 79 L Random Glucose 128 H Calcium 8.8 Magnesium 1.7 Result Diagrams: 05/20/18 04:37 05/22/18 13:29 Imaging: ITS Impressions Cervical Spine CT 05/18/18 22:08 CONCLUSION: 1. No acute bony abnormality is seen. 2. Degenerative change. Head CT 05/18/18 22:08 CONCLUSION: No acute intracranial abnormality. . . Chest X-Ray 05/21/18 00:00 CONCLUSION: The lungs are clear. Assessment and Plan - Assessment (1) Urinary retention Code(s): R33.9 - Retention of urine, unspecified Status: Acute - Plan Urologic impression: 1. History of prostate cancer status post radiation therapy 2. New onset urinary retention of indeterminate etiology Recommendations: 1. Maintain Munoz catheter to gravity drainage 2. At time of discharge, the Munoz catheter should be connected to a leg bag and the patient given a large drainage bag for overnight use. 3. Patient to follow-up with his established local urologist Dr. Brown after hospital discharge for further urologic management.
[2018-05-23] MEDS ORDERED: Metoprolol Tartrate 50 MG Tablet PO ONE (13:45)
[2018-05-23] MEDS ORDERED: Rivaroxaban 15 MG Tablet PO SCH (13:54)
--- NOTE | 2018-05-23 14:29 | MB ---
cc: Stewart Mahan MD DATE: 05/23/2018 REASON FOR CONSULTATION: Cardiomyopathy, atrial fibrillation with a rapid ventricular response. HISTORY OF PRESENT ILLNESS: The patient is a 73-year-old white male, followed in our [place] office by Dr. Lurdes Townsend, with a history of COPD, prostate cancer, chronic atrial fibrillation, hypertension, who was initially brought to the hospital as a [place]. Emergency services and police inadvertently thought he was suicidal. The patient states he has never been suicidal. Here in the hospital, he was found to be mildly tachycardic. An echocardiogram on 05/21/2018 reported an ejection fraction of 40% to 45%. The patient denies chest pain, change in chronic dyspnea on exertion, dizziness, syncope, near syncope, palpitations, pedal edema, paroxysmal nocturnal dyspnea. He has had some problems with pneumonia and possible flu symptoms in the past 6 months. PAST MEDICAL HISTORY: 1. COPD. 2. Prostate cancer, status post transurethral resection of the prostate as well as radiation therapy. 3. Chronic atrial fibrillation. 4. Hypertension. PAST SURGICAL HISTORY: 1. Transurethral resection of the prostate. 2. Cataract surgery. CARDIAC MEDICATIONS: At home: 1. Cardizem CD 120 mg daily. 2. Metoprolol tartrate 25 mg t.i.d. 3. Xarelto 15 mg daily. Here in the hospital, he has been continued on 1. Xarelto 15 mg p.o. daily. 2. Metoprolol tartrate 50 mg p.o. b.i.d. 3. Furosemide 20 mg p.o. daily. 4. Cardizem CD 120 mg p.o. daily. ALLERGIES: NO KNOWN DRUG ALLERGIES. FAMILY HISTORY: Noncontributory. SOCIAL HISTORY: The patient smokes about 7-8 cigarettes per day. He drinks alcohol fairly frequently. REVIEW OF SYSTEMS: As in history of present illness, otherwise negative or noncontributory. He also currently denies headache, abdominal pain, melena, dyspepsia, bright red blood per rectum. He reports no change in chronic daily wheezing. PHYSICAL EXAMINATION: VITAL SIGNS: His blood pressure 132/84 with a pulse of 100 and respirations 20. GENERAL: He is a well-developed, well-nourished white male, in no acute distress. HEENT: Jugular venous pressure is normal. Carotid pulses are 2+ bilaterally and without bruits. CHEST: Diminished breath sounds diffusely. There are no rales or wheezes. CARDIAC: He has an irregularly irregular rhythm without S3 or murmur. ABDOMEN: He has a soft, nontender abdomen. Bowel sounds are present. There is no definite hepatosplenomegaly. EXTREMITIES: No clubbing, cyanosis, or edema. DIAGNOSTIC DATA: EKG from 05/18/2018 shows atrial fibrillation with a rapid ventricular response, low QRS voltage. Chest x-ray from 05/21/2018 shows no acute disease. LABORATORY DATA: WBC 4.5, hemoglobin 9.2, platelets 238. Potassium 3.8, BUN 11, creatinine 0.94. IMPRESSION: Mildly elevated heart rates in a 73-year-old white male with a history of chronic obstructive pulmonary disease, prostate cancer, chronic atrial fibrillation, hypertension. I have been also asked to see the patient for cardiomyopathy. His echocardiogram, which is technically difficult, has been reviewed. It does appear his ejection fraction is closer to 55% rather than the 40% to 45% reported. The patient does have probable right ventricular enlargement, although with normal right ventricular systolic function. At this time, there is no evidence for congestive heart failure. His heart rates in the last couple hours have improved on his current regimen. There is no evidence for acute coronary syndrome. Some of the elevation in heart rates may be due to COPD exacerbation, anemia, alcohol withdrawal. RECOMMENDATIONS: 1. Increase his Cardizem dosing as much as possible. 2. Increase metoprolol at 75 mg b.i.d. 3. Xarelto dosing should be 20 mg a day. MD MINESH Solo/sagar , 01:53 PM , 02:04 PM JHONATAN
[2018-05-23] MEDS: dilTIAZem CD 240 MG Capsule PO SCH (15:10)
--- NOTE | 2018-05-23 18:46 | P.PNPL ---
Subjective Interval history: 73 YOWM with COPD,AF Breathing better On NC Denies CP Mild sob no fevevr or chills. Physical Exam Vital signs: Vital Signs 05/22/18 19:00 05/22/18 20:00 05/22/18 21:00 Temperature 97.9 F Pulse Rate 91 H 90 114 H Respiratory Rate 18 Blood Pressure 100/66 Pulse Oximetry 97 05/22/18 21:03 05/22/18 22:00 05/22/18 23:00 Temperature Pulse Rate 99 H 120 H 110 H Respiratory Rate 16 Blood Pressure Pulse Oximetry 94 L 05/22/18 23:32 05/23/18 00:00 05/23/18 00:45 Temperature 98.0 F Pulse Rate 107 H 110 H 93 H Respiratory Rate 18 18 Blood Pressure 122/78 Pulse Oximetry 95 05/23/18 01:00 05/23/18 02:00 05/23/18 03:00 Temperature Pulse Rate 110 H 99 H 125 H Respiratory Rate Blood Pressure Pulse Oximetry 05/23/18 04:00 05/23/18 04:36 05/23/18 05:00 Temperature 98.3 F Pulse Rate 110 H 100 H 125 H Respiratory Rate 18 22 Blood Pressure 87/69 L Pulse Oximetry 97 05/23/18 05:31 05/23/18 06:00 05/23/18 07:00 Temperature Pulse Rate 127 H 115 H Respiratory Rate Blood Pressure Pulse Oximetry 99 05/23/18 08:00 05/23/18 09:00 05/23/18 10:00 Temperature 97.9 F Pulse Rate 122 H 123 H 113 H Respiratory Rate 18 Blood Pressure 128/58 L Pulse Oximetry 95 05/23/18 11:00 05/23/18 11:37 05/23/18 12:00 Temperature 98.2 F Pulse Rate 115 H 123 H 132 H Respiratory Rate 18 Blood Pressure 132/84 Pulse Oximetry 98 05/23/18 13:00 05/23/18 13:40 05/23/18 14:00 Temperature Pulse Rate 112 H 118 H Respiratory Rate 20 Blood Pressure Pulse Oximetry 92 L 05/23/18 15:00 05/23/18 15:53 05/23/18 15:54 Temperature 98.5 F Pulse Rate 101 H 96 H 88 Respiratory Rate 18 Blood Pressure 107/63 Pulse Oximetry 94 L 05/23/18 15:57 05/23/18 17:00 05/23/18 17:38 Temperature Pulse Rate 104 H 99 H Respiratory Rate Blood Pressure Pulse Oximetry 94 L Intake & Output 05/22/18 05/23/18 05/23/18 18:59 06:59 18:59 Intake Total 3164 / 3164 100 / 100 1000 / 1000 Output Total 1250 / 1250 2300 / 2300 Balance 1914 / 1914 100 / 100 -1300 / -1300 Intake: IV 2239 / 2239 100 / 100 Cardizem Inj 125 MG In NS Inj 125 / 125 100 ML @ 5 MG/HR 5 mls/hr IV. CONT TITRATE PRN Rx#:[id number] Rocephin Inj 1,000 MG In NS Inj 100 / 100 100 / 100 100 ML @ 200 mls/hr IV.SIG Q24H [facility] Rx#:[id number] Oral 925 / 925 1000 / 1000 Output: Urine Amount (Catheter) 1250 / 1250 2300 / 2300 Indwelling Urethral Catheter 1250 / 1250 2300 / 2300 Other: Date of Last Bowel Movement 05/23/18 # Bowel Movements 0 1 GENERAL: WBWN WM, NAD SKIN: Warm and dry. HEAD: Normocephalic. EYES: No scleral icterus. No injection or drainage. NECK: Supple, trachea midline. No JVD or lymphadenopathy. CARDIOVASCULAR: Regular rate and rhythm without murmurs, gallops, or rubs. RESPIRATORY: Breath sounds equal bilaterally. No accessory muscle use. GASTROINTESTINAL: Abdomen soft, non-tender, nondistended. MUSCULOSKELETAL: No cyanosis, or edema. BACK: Nontender without obvious deformity. No CVA tenderness. - Urinary Catheter Management Straight Cath placed during this visit: no Indwelling Urethral Catheter Cath placed during this visit: yes, but has since been removed by the nurse Reason for continuing: Acute urinary retention Insertion date: 05/22/18 Insertion time: 11:20 Removal date: 05/21/18 Removal time: 18:00 Assessment and Plan - Plan IMPRESSION: 1. Chronic obstructive pulmonary disease with exacerbation. 2. Atrial fibrillation with rapid ventricular rate. 3. Alcohol use. 4. Nicotine use. 5. Hypertension. PLAN: Aerosol nebs Supplement 02 Symbicort 2 puffs bid Solumedrol 40 mg q 6 hrs xarelto 20 mg daily cardiazem 240 mg daily PFT
[2018-05-23] MEDS ORDERED: Metoprolol Tartrate 50 MG Tablet PO SCH (21:00)
[2018-05-23] MEDS: Metoprolol Tartrate 50 MG Tablet PO SCH (21:28)
[2018-05-23] MEDS ORDERED: Acetaminophen 325 MG Tablet PO PRN (21:47)
[2018-05-23] MEDS: LORazepam 1 MG Tablet PO PRN (22:34)
[2018-05-24] MEDS: MethylPREDNISolone Sod Succinate Inj 40 MG/ML Vial IV.PUSH SCH ×3 (04:04→18:19)
--- NOTE | 2018-05-24 07:00 | P.PNCA ---
Subjective Interval history: No palpitations, dizziness, dyspnea, CP. Medications and Allergies Active Medications: Active Cardiac Medications Diltiazem HCl (Cardizem Cd 24hr) 240 mg PO DAILY [facility] Last Admin: 05/23/18 15:10 Dose: 240 mg Furosemide (Lasix) 20 mg PO DAILY [facility] Last Admin: 05/23/18 08:57 Dose: 20 mg Metoprolol Tartrate (Lopressor) 75 mg PO BID [facility] Last Admin: 05/23/18 21:28 Dose: 75 mg Rivaroxaban (Xarelto) 20 mg PO DAILY [facility] Allergies Allergy/AdvReac Type Severity Reaction Status Date / Time No Known Allergies Allergy Verified 05/04/18 08:16 Physical Exam Vital signs: Vital Signs 05/23/18 07:00 05/23/18 08:00 05/23/18 09:00 Temperature 97.9 F Pulse Rate 115 H 122 H 123 H Respiratory Rate 18 Blood Pressure 128/58 L Pulse Oximetry 95 05/23/18 10:00 05/23/18 11:00 05/23/18 11:37 Temperature 98.2 F Pulse Rate 113 H 115 H 123 H Respiratory Rate 18 Blood Pressure 132/84 Pulse Oximetry 98 05/23/18 12:00 05/23/18 13:00 05/23/18 13:40 Temperature Pulse Rate 132 H 112 H Respiratory Rate 20 Blood Pressure Pulse Oximetry 92 L 05/23/18 14:00 05/23/18 15:00 05/23/18 15:53 Temperature 98.5 F Pulse Rate 118 H 101 H 96 H Respiratory Rate 18 Blood Pressure 107/63 Pulse Oximetry 94 L 05/23/18 15:54 05/23/18 15:57 05/23/18 17:00 Temperature Pulse Rate 88 104 H Respiratory Rate Blood Pressure Pulse Oximetry 94 L 05/23/18 17:38 05/23/18 19:00 05/23/18 20:00 Temperature 97.6 F Pulse Rate 99 H 83 83 Respiratory Rate 18 Blood Pressure 114/65 Pulse Oximetry 95 05/23/18 20:50 05/23/18 21:00 05/23/18 22:00 Temperature Pulse Rate 79 83 83 Respiratory Rate 16 Blood Pressure Pulse Oximetry 94 L 05/23/18 23:00 05/23/18 23:57 05/24/18 00:00 Temperature 99.0 F Pulse Rate 83 84 81 Respiratory Rate 18 18 Blood Pressure 108/58 L Pulse Oximetry 93 L 05/24/18 01:00 05/24/18 02:00 05/24/18 03:00 Temperature Pulse Rate 76 80 84 Respiratory Rate Blood Pressure Pulse Oximetry 05/24/18 04:00 05/24/18 05:00 05/24/18 05:57 Temperature 98.1 F Pulse Rate 99 H 74 79 Respiratory Rate 18 Blood Pressure 106/65 Pulse Oximetry 93 L Intake & Output 05/23/18 05/23/18 05/24/18 06:59 18:59 06:59 Intake Total 100 / 100 1000 / 1000 720 / 720 Output Total 2300 / 2300 600 / 600 Balance 100 / 100 -1300 / -1300 120 / 120 Weight 93.6 kg Intake: IV 100 / 100 Rocephin Inj 1,000 MG In NS Inj 100 / 100 100 ML @ 200 mls/hr IV.SIG Q24H [facility] Rx#:[id number] Oral 1000 / 1000 720 / 720 Output: Urine Amount (Catheter) 2300 / 2300 600 / 600 Indwelling Urethral Catheter 2300 / 2300 600 / 600 Other: Date of Last Bowel Movement 05/23/18 05/23/18 # Bowel Movements 1 - Constitutional no acute distress - Routine Neck Exam Absent: JVD - Routine Respiratory Exam Present: CTA bilaterally - Routine Cardiovascular Exam Present: S1, S2, irregularly irregular. Absent: murmur, gallop - Routine Extremities Exam Absent: cyanosis, clubbing, edema - Urinary Catheter Management Straight Cath placed during this visit: no Indwelling Urethral Catheter Cath placed during this visit: yes, but has since been removed by the nurse Reason for continuing: Acute urinary retention Insertion date: 05/18/18 Insertion time: 11:20 Removal date: 05/21/18 Removal time: 18:00 Results 05/20/18 04:37 05/22/18 13:29 Comprehensive Metabolic Panel 05/22/18 Range/Units 13:29 Sodium 140 (136-145) meq/L Potassium 3.8 (3.5-5.1) meq/L Chloride 100 (98-107) meq/L Carbon Dioxide 33.4 H (21.0-32.0) meq/L BUN 11 (7-18) mg/dL Creatinine 0.94 (0.60-1.30) mg/dL Calcium 8.8 (8.5-10.1) mg/dL Intake and Output 05/23/18 05/23/18 05/24/18 14:59 22:59 06:59 Intake Total 1000 / 1000 720 / 720 Output Total 2300 / 2300 600 / 600 Balance -1300 / -1300 120 / 120 Intake: Oral 1000 / 1000 720 / 720 Output: Urine Amount (Catheter) 2300 / 2300 600 / 600 Indwelling Urethral Catheter 2300 / 2300 600 / 600 Other: Date of Last Bowel Movement 05/23/18 05/23/18 # Bowel Movements 1 Weight 93.6 kg Patient Weight 05/24/18 06:59 Weight 93.6 kg Assessment and Plan - Assessment (1) Chronic atrial fibrillation Code(s): I48.2 - Chronic atrial fibrillation Status: Chronic Plan: Stable overnight. HR's now acceptable on current Cardizem CD/metoprolol tartrate dosing. Recommend continue current medications. Again, Xarelto dose should be 20 mg qd. OK to discharge from cardiac standpoint, f/u with Dr. Townsend in [place]. (2) Cardiomyopathy Code(s): I42.9 - Cardiomyopathy, unspecified Status: Acute Plan: Stable. No CHF. Again, EF appears closer to 55% with no left ventricular enlargement by my review. He does have right ventricular enlargement with normal systolic function, possibly from longstanding COPD. No new recommendations. - Plan Code Status: full code Discussed Condition With: patient (2) Cardiomyopathy Qualifiers: Cardiomyopathy type: unspecified Qualified Code(s): I42.9 - Cardiomyopathy, unspecified
[2018-05-24] MEDS ORDERED: Rivaroxaban 20 MG Tablet PO SCH (09:00)
[2018-05-24] MEDS: dilTIAZem CD 240 MG Capsule PO SCH (10:23)
[2018-05-24] MEDS: Budesonide-Formoterol 160/4.5 MCG 6 GM Inhaler INH SCH (10:23)
[2018-05-24] MEDS: Furosemide 20 MG Tablet PO SCH (10:25)
[2018-05-24] MEDS: Metoprolol Tartrate 50 MG Tablet PO SCH (10:25)
[2018-05-24] MEDS: Senna/Docusate Sodium 8.6/50 MG Tablet PO SCH (10:26)
[2018-05-24 11:09] VITALS: BP 136/91; RESP 20; TEMP 98.9; O2SAT 95
--- NOTE | 2018-05-24 11:25 | P.DS ---
DS: Providers Date of admission: 05/19/18 01:56 Primary care physician: UNKNOWN Consults: 05/19/18 01:56 Consult to Psychiatry Routine Consulting Provider: Ayden Desir Reason for Consultation: Green Act Notified:: Office Spoke with:: [facility]AN [facility]IC[facility] Date Notified:: 05/19/18 Time Notified:: 04:19 Ordering Provider: NYDIA 05/20/18 10:03 HUB Only Consult Order Routine Consulting Provider: Travis Robles 05/22/18 12:26 Consult to Pulmonology Routine Consulting Provider: Americo Vidal Preferred Lay Out Technician:: Americo Vidal Reason for Consultation: heavy smoker apneic episodes- smoker "as much as I can" Notified:: Office Spoke with:: summer Date Notified:: 05/22/18 Time Notified:: 12:33 Ordering Provider: SONIA 05/23/18 07:54 Consult to Cardiology Routine Consulting Provider: Stewart Mahan Does the patient have a Microbiology Teacher who follows them?: Yes Preferred Assembling Inspector:: [facility] Reason for Consultation: a fib RVR, CMP - states has ship manager in [place] - Dr Chery Notified:: Service Spoke with:: allyson Date Notified:: 05/23/18 Time Notified:: 08:05 Ordering Provider: SONIA 05/23/18 07:55 Consult to Urology Routine Consulting Provider: Cabrera Her Reason for Consultation: urinary retention history of prostate cancer Notified:: Service Spoke with:: patricia Date Notified:: 05/23/18 Time Notified:: 08:01 Ordering Provider: SONIA Brief History from admission: This is a 73-year-old male with PMH of HTN, A. fib on Xarelto and Alcohol Abuse was brought to the ER by EMS under Green Act after calling Police and threatening to shoot himself w/ his gun. On arrival, noted to be in A-fib w/ RVR, HR 140's, states he is on Xarelto and compliant, cannot recall names of other medications. S/p Cardizem IV x1 in ER w/ transient improvement, however had episode of recurrent A-fib w/ RVR, currently on Cardizem gtt. BP 123/81, HR 135, O2 sat 95% on RA, Afebrile. CBC at baseline. INR 1.1. Chemistry unremarkable. Troponin negative. UA positive for UTI. UDS +Benzo. CXR w/ no acute findings. CT Head w/ no acute findings, CT C-Spine negative. DS: Diagnosis Discharge Diagnosis (1) Chronic atrial fibrillation: Status: Chronic (2) Cardiomyopathy: Status: Acute DS: Summary 73-year-old white male admitted under Green act suicidal ideation, as well as A. fib with RVR. Patient medications adjusted, consult cardiology patient is clear for discharge to follow-up as outpatient with his cardiology Dr. Medel. Echo with ejection fraction of 40-45%. Patient also with acute urinary retention with a history of prostate cancer and has a Prado started on Flomax. Urology consulted recommends follow-up with his urology as outpatient and continue Prado. He was also receiving antibiotic finish course of antibiotic while inpatient for UTI. Patient was with a suicidal ideation however was seen by psychiatry which lifted Green act. Patient discharged home in stable condition to follow-up with PCP and consultants as outpatient. Afib w/ RVR- resolved Acute systolic HF underlying cardiomyopathy - -Echocardiogram - EF 40-45% - on Lopressor 25 mg tid- increase to 50 mg tid - changed to Cardizem long acting 120 mg -05/22 - started on Pravin- Linsopril 2.5 mg daily - Lasix 20 mg daily - continue on Xarelto 15 mg daily - give x 1 digoxin .25 mcg IV now - consult Cardiology- states ff with [facility] heart froup in [place]- Dr. Chery - ? DC cardizem with negative inotropic effect and increase BB- will defer to cardiology - Seen by cardiology recommends follow up as oP with his cardiology , cleared patient for DC Acute urinary retention history of Prostate cancer - straight cath 2x - 05/21 - prado placed today 1200 cc out . - states he has a urologist - will let us know who - start Flomax 0,4 mg daily 05/22 - voiding trial in 3 days - Urology consult. Appreciate recommendations continue Flomax at discharge patient can be discharged home and to follow-up with his urology doctor. Patient to continue to have Prado. UTI -enterococcus faecalis- colonies <75,000 -was started on rocephin- 05/19 -we will discontinue -UA no pyuria Heavy alcohol use CIWA protocol - change to Librium prn- patient with reported apneic episodes. No withdrawals. off meds EMILE suspect- apneic episodes reported Underlying COPD- "smokes as much as I can" - Pulmonary ff- a[reciate Dr. Vidal seeing patient - hold benzos Was suicidal ideation - now denies - To be discharged to psychiatry once vital signs are stable, appreciate psychiatry input. Discussed with Dr Lopez psych. BA lifted OOB to chair and ambulate PT- history of falls Time Spent with Patient Total time spent providing and/or coordinating discharge services: > 30 min Quality: VTE Deep Vein Thrombosis/Pulmonary Embolism Present on Admission: No Exam Narrative Exam Narrative: GENERAL: The patient is a 73-year-old male appears in not acute distress. SKIN: Warm and dry. CARDIOVASCULAR: Regular rate and rhythm. RESPIRATORY: No accessory muscle use. Clear to auscultation. Breath sounds equal bilaterally. GASTROINTESTINAL: Abdomen soft, non-tender, nondistended. Hepatic and splenic margins not palpable. MUSCULOSKELETAL: Extremities without clubbing, cyanosis, or edema. No obvious deformities. NEUROLOGICAL: Awake and alert. No obvious cranial nerve deficits. Motor grossly within normal limits. Normal speech. PSYCHIATRIC: Appropriate mood and affect; insight and judgment normal. No suicidal ideation. Results Impressions ITS Impressions Cervical Spine CT 05/18/18 22:08 CONCLUSION: 1. No acute bony abnormality is seen. 2. Degenerative change. Head CT 05/18/18 22:08 CONCLUSION: No acute intracranial abnormality. . . Chest X-Ray 05/21/18 00:00 CONCLUSION: The lungs are clear. Discharge Plan Discharge Disposition Patient Disposition: Disch W/Home Health Service Discharge Condition Condition: Stable Discharge Order Discharge Orders: Discharge Order (Routine); Ordered 05/24/18 Ordered By: Migdalia Joe Cardiology Clear for Discharge (Routine); Ordered 05/24/18 Ordered By: Stewart Mahan Discharge Details Anticipated Discharge Date: 05/24/18 Discharge Comment: DC when arrangements are done Physicians Team ED Provider: Juan Murray Primary Care Provider: UNKNOWN, Attending Provider: Migdalia Joe Other Providers: Travis Robles ; Americo Vidal ; Stewart aMhan ; Cabrera Her ; Ayden Desir Rxs /Orders / Referrals /Forms Prescriptions: New thiamine HCl (vitamin B1) 100 mg Tablet 100 mg PO DAILY Qty: 30 RF: 0 tamsulosin 0.4 mg Capsule 0.4 mg PO DAILY Qty: 30 RF: 0 rivaroxaban [Xarelto] 20 mg Tablet 20 mg PO DAILY Qty: 30 RF: 0 diltiazem HCl 240 mg Capsule,Extended Release 24hr 240 mg PO DAILY Qty: 30 RF: 0 metoprolol tartrate 50 mg Tablet 75 mg PO BID Qty: 60 RF: 0 furosemide 20 mg Tablet 20 mg PO DAILY Qty: 30 RF: 0 budesonide-formoterol [Symbicort] 160-4.5 mcg/actuation Hfa Aerosol Inhaler 2 puff Inhalation BID 30 Days Qty: 10.2 RF: 0 prednisone 20 mg tablet 20 mg PO BID Qty: 6 RF: 0 Continue ipratropium-albuterol 0.5 mg-3 mg(2.5 mg base)/3 mL Solution For Nebulization 1 amp NEB Q4HR NEB PRN (Reason: Respiratory Distress) Qty: 30 RF: 0 nitrofurantoin macrocrystal 100 mg capsule 100 mg PO BID Qty: 14 RF: 0 Discontinued diltiazem HCl 120 mg Capsule,Extended Release 24hr 120 mg PO DAILY 30 Days Qty: 30 RF: 0 metoprolol tartrate 25 mg Tablet 25 mg PO TID 30 Days Qty: 90 RF: 0 rivaroxaban [Xarelto] 15 mg Tablet 15 mg PO DAILY Qty: 30 RF: 0 Referrals: Americo Vidal MD [Physician] - See Instructions ( Please call the physician's office to book the appointment to be seen within [2 weeks ].) Cabrera Her MD [UROLOGY] - See Instructions ( Please call the physician's office to book the appointment to be seen within [ 1 week]. Follow up with your urology Dr Brown ) Stewart Mahan MD [Physician] - See Instructions ( Please call the physician's office to book the appointment to be seen within [1 week]. Follow up with your cardiology Dr iman Kline) UNKNOWN, [Primary Care Provider] - See Instructions ( Please call the physician's office to book the appointment to be seen within [2-3 days with your pcp].) Discharge Instructions Patient Printed Instructions: Depression (DC), Prado Catheter Placement and Care (DC), Medical Clearance for Psychiatric Care (GEN), Urinary Leg Bag (GEN), Suicide Prevention (DC) Additional Instructions: Your Health Problems: Goals to Promote Your Health: * To prevent worsening of your condition * To maintain your health at the optimal level Directions to Meet Your Goals: * Take your medications as prescribed * Follow your dietary instruction * Follow activity as directed * Keep your appointments as scheduled * Take your immunizations and boosters as scheduled * If your symptoms worsen call your PCP * If no PCP go to Urgent Care or Emergency Room Smoking is dangerous to your health. Avoid second hand smoke. You may reach the 24-hour crisis hotline for domestic abuse at . Post Discharge Care Plan Care Plan Goals: Your Health Problems: Goals to Promote Your Health: * To prevent worsening of your condition * To maintain your health at the optimal level Directions to Meet Your Goals: * Take your medications as prescribed * Follow your dietary instruction * Follow activity as directed * Keep your appointments as scheduled * Take your immunizations and boosters as scheduled * If your symptoms worsen call your PCP * If no PCP go to Urgent Care or Emergency Room Smoking is dangerous to your health. Avoid second hand smoke. You may reach the 24-hour crisis hotline for domestic abuse at . Status ED Status: Left Department
--- NOTE | 2018-05-24 11:25 | P.DCO ---
Diagnosis (1) Chronic atrial fibrillation: Status: Chronic (2) Cardiomyopathy: Status: Acute Physical Therapy Order: Evaluate and treat Home Health Nursing Order: Medical education, Signs/symptoms of disease process, Medication education-adverse effect, Nursing assessment with vital signs and Munoz catheter maintenance Case Management Consult Case Management Consult-Home Health: Yes I have seen patient Herb Mckinney on 05/24/18. My clinical findings support the need for the requested home health care services because: Limited mobility due to disease progression and Patient has SOB I certify that my clinical findings support that this patient is homebound because: Post-op weakness, Hx COPD - exertion dyspnea/weakness and Unsteady gait/balance _ (1) Cardiomyopathy Qualifiers: Cardiomyopathy type: unspecified Qualified Code(s): I42.9 - Cardiomyopathy, unspecified
--- NOTE | 2018-05-24 15:02 | P.PNPSY ---
Subjective Remarks: The patient is seen for psychiatric reevaluation today. He is calm and cooperative. Patient reports that he feels much better now. Patient says that he was misunderstood by the police, he never made any suicidal statement. He does admit that he was very drunk and he has been drinking alcohol every day. At this moment the patient denies alcohol withdrawal symptoms. He denies anhedonia, denies hopelessness, denies helplessness, he denies suicidal and was ideation, he denies visual and auditory hallucinations. The patient is future oriented, he says that he wants to go back home to continue his life, he clarifies that he is guns have been removed by his daughter, I spoke with the daughter directly by phone, and she confirmed this. Patient says that he does not have any intention to commit suicide, he says that he enjoys life and he does need to control the alcoholism. He is oriented x3, no attention deficit, no filtration of consciousness. Mental Status Examination Appearance: Appropriate Consciousness: Alert Orientation: x4 Motor Activity: Normal gait Speech: Slow Language: Adequate Fund of Knowledge: Adequate, Poor Attention and Concentration: Adequate Memory: Unremarkable Affect: Appropriate Thought Process & Associations: Intact Thought Content: Appropriate Hallucination Type: None Delusion Type: None Suicidal Ideation: No (denies but poor historian) Suicidal Plan: No Suicidal Intention: No Homicidal Ideation: No Homicidal Plan: No Homicidal Intention: No Insight: Fair Judgment: Impulsive Assessment and Plan - Assessment (1) Major depressive disorder, recurrent, moderate Code(s): F33.1 - Major depressive disorder, recurrent, moderate Status: Acute - Plan Plan: Patient does not meet criteria for involuntary psychiatric admission at this moment. He denies depression, anxiety, umang and psychosis. He is future oriented. Oriented x3, no gross cognitive impairment present. Patient is in a low risk of danger to self and others at the moment. Does not meet criteria for involuntary psychiatric admission. Green act is lifted. Justification for Continued Inpatient Stay: Support, motivation, psych education provided. Green act lifted. I have spoken with his daughter, and she agrees with this plan.
[2018-05-24 17:24] VITALS: PULSE 104
--- NOTE | 2018-05-24 18:26 | P.PNPL ---
Subjective Interval history: 73 YOWM with COPD,AF Breathing better On NC Denies CP Mild sob no fever or chills. Has Munoz Physical Exam Vital signs: Vital Signs 05/23/18 19:00 05/23/18 20:00 05/23/18 20:50 Temperature 97.6 F Pulse Rate 83 83 79 Respiratory Rate 18 16 Blood Pressure 114/65 Pulse Oximetry 95 94 L 05/23/18 21:00 05/23/18 22:00 05/23/18 23:00 Temperature Pulse Rate 83 83 83 Respiratory Rate Blood Pressure Pulse Oximetry 05/23/18 23:57 05/24/18 00:00 05/24/18 01:00 Temperature 99.0 F Pulse Rate 84 81 76 Respiratory Rate 18 18 Blood Pressure 108/58 L Pulse Oximetry 93 L 05/24/18 02:00 05/24/18 03:00 05/24/18 04:00 Temperature 98.1 F Pulse Rate 80 84 99 H Respiratory Rate 18 Blood Pressure 106/65 Pulse Oximetry 93 L 05/24/18 05:00 05/24/18 05:57 05/24/18 07:00 Temperature Pulse Rate 74 79 66 Respiratory Rate Blood Pressure Pulse Oximetry 05/24/18 07:53 05/24/18 08:00 05/24/18 09:00 Temperature 98.0 F Pulse Rate 80 72 74 Respiratory Rate 19 Blood Pressure 111/67 Pulse Oximetry 95 05/24/18 09:29 05/24/18 10:00 05/24/18 11:00 Temperature Pulse Rate 96 H 75 Respiratory Rate Blood Pressure Pulse Oximetry 93 L 05/24/18 11:08 05/24/18 12:00 05/24/18 13:00 Temperature 98.9 F Pulse Rate 100 H 82 98 H Respiratory Rate 20 Blood Pressure 136/91 H Pulse Oximetry 95 05/24/18 14:00 05/24/18 15:00 Temperature Pulse Rate 76 104 H Respiratory Rate Blood Pressure Pulse Oximetry Intake & Output 05/23/18 05/24/18 05/24/18 18:59 06:59 18:59 Intake Total 1000 / 1000 720 / 720 Output Total 2300 / 2300 600 / 600 Balance -1300 / -1300 120 / 120 Weight 93.6 kg Intake: Oral 1000 / 1000 720 / 720 Output: Urine Amount (Catheter) 2300 / 2300 600 / 600 Indwelling Urethral Catheter 2300 / 2300 600 / 600 Other: Date of Last Bowel Movement 05/23/18 05/23/18 05/23/18 # Bowel Movements 1 GENERAL: Elderly Wm NAD SKIN: Warm and dry. HEAD: Normocephalic. EYES: No scleral icterus. No injection or drainage. NECK: Supple, trachea midline. No JVD or lymphadenopathy. CARDIOVASCULAR: Regular rate and rhythm without murmurs, gallops, or rubs. RESPIRATORY: Breath sounds equal bilaterally. No accessory muscle use. GASTROINTESTINAL: Abdomen soft, non-tender, nondistended. MUSCULOSKELETAL: No cyanosis, or edema. BACK: Nontender without obvious deformity. No CVA tenderness. - Urinary Catheter Management Straight Cath placed during this visit: no Indwelling Urethral Catheter Cath placed during this visit: yes, but has since been removed by the nurse Reason for continuing: Other continuation reason Insertion date: 05/18/18 Insertion time: 11:20 Removal date: 05/21/18 Removal time: 18:00 Assessment and Plan - Plan IMPRESSION: 1. Chronic obstructive pulmonary disease with exacerbation. 2. Atrial fibrillation with rapid ventricular rate. 3. Alcohol use. 4. Nicotine use. 5. Hypertension. PLAN: Aerosol nebs Supplement 02 Symbicort 2 puffs bid Solumedrol 40 mg q 6 hrs xarelto 20 mg daily cardiazem 240 mg daily DC plans underway.
== END 2018-05-24 18:50 | disposition home health service (06) | DRG 308 ==
LOC: NEPC 20:47 → NEDA 05-19 01:56 → HCPC 05-19 03:38 → HCIN 05-23 18:30
PROVIDERS: ADMIT Hospitalist; ATTEND Hospitalist
DX: F10.10 Alcohol abuse, uncomplicated; I11.0 Hypertensive heart disease with heart failure; G47.33 Obstructive sleep apnea (adult) (pediatric); B95.2 Enterococcus as the cause of diseases classified elsewhere; Z99.81 Dependence on supplemental oxygen; Z68.30 Body mass index [BMI] 30.0-30.9, adult; Z91.14 Patient's other noncompliance with medication regimen; I50.21 Acute systolic (congestive) heart failure; I48.2 Chronic atrial fibrillation; Z79.01 Long term (current) use of anticoagulants; Z85.46 Personal history of malignant neoplasm of prostate; I42.9 Cardiomyopathy, unspecified; N39.0 Urinary tract infection, site not specified; Z90.79 Acquired absence of other genital organ(s); R53.1 Weakness; R00.0 Tachycardia, unspecified; J44.1 Chronic obstructive pulmonary disease with (acute) exacerbation; R33.9 Retention of urine, unspecified; F17.210 Nicotine dependence, cigarettes, uncomplicated; Z91.81 History of falling; R26.81 Unsteadiness on feet; R45.851 Suicidal ideations; E66.9 Obesity, unspecified; Z92.3 Personal history of irradiation; F33.1 Major depressive disorder, recurrent, moderate
CPT/HCPCS: 36600; 51702; 70450; 71010; 71045; 72125; 80048; 80053; 80307; 81001; 82805; 83520; 83735; 83880; 84443; 84484; 85025; 85610; 87077; 87086; 87186; 90774; 90775; 90784; 93306; 94003; 94060; 94640; 94657; 94664; 94665; 96374; 96375; 97162; 99291; C8952; J0696; J1160; J1630; J1940; J2060; J2920; J3475; J3480; J7030